=== PATIENT | female | born 1945 | race Caucasian/White ===

== ENCOUNTER 2017-07-18 21:47 | Inpatient (IN) | payer MEDICARE, OTHER ==
[2017-07-18 22:42] VITALS: BP 125/66
[2017-07-18 23:28] LABS: % BASOPHILS 0.3 % (0.0-2.0); % EOSINOPHILS 3.3 % (0.0-5.0); % LYMPHOCYTES 27.8 % (20.0-50.0); % MONOCYTES 4.8 % (2.0-10.0); % NEUTROPHILS 63.8 % (40.0-80.0); EOSINOPHILE ABSOLUTE 0.2 Th/cmm (0.1-0.4); HEMATOCRIT 39.6 % (41.0-60); HEMOGLOBIN 13.2 gm/dL (12-16); MEAN CELL VOLUME 90.3 fl (81-100); MEAN CORPUSCULAR HEMOGLOBIN 30.1 pg (27.0-31.0); MEAN CORPUSCULAR HGB CONC 33.3 pg (28.0-36.0); MEAN PLATELET VOLUME 7.4 fl; MONOCYTE ABSOLUTE 0.4 Th/cmm (0.3-1.0); NEUTROPHILE ABSOLUTE 4.7 Th/cmm (1.8-8.0); PLATELET COUNT 232 Th/cmm (150-400); RED BLOOD COUNT 4.38 Mil/cmm (3.80-5.20); RED CELL DISTRIBUTION WIDTH 12.5 % (11.5-20.0); WHITE BLOOD COUNT 7.3 Th/cmm (4.8-10.8)
[2017-07-19] MEDS: D5-0.45NS 1,000 ML IV SCH ×2 (00:01→19:03)
[2017-07-19 00:23] LABS: ALB/GLOB RATIO 1.2 (1.0-1.8); ALBUMIN 3.6 gm/dL (3.7-5.3); ALKALINE PHOSPHATASE 85 U/L (34-104); ANION GAP 9.3 (7.0-16.0); BILIRUBIN,TOTAL 0.4 mg/dL (0.3-1.0); BUN - UREA NITROGEN 18 mg/dL (7-25); CALCIUM SERUM 9.4 mg/dL (8.6-10.3); CARBON DIOXIDE 24.6 mEq/L (21.0-31.0); CHLORIDE 107 mEq/L (98-107); CREATININE - SERUM 0.6 mg/dL (0.6-1.2); GFR AFRICAN-AMERICAN > 60.0 ml/min (>90); GFR NON AFRICAN-AMERICAN > 60.0 ml/min; GLUCOSE 95 mg/dL (70-105); POTASSIUM SERUM 3.9 mEq/L (3.5-5.1); SGOT 18 U/L (13-39); SGPT/ALT 29 U/L (7-52); SODIUM SERUM 137 mEq/L (136-145); TOTAL PROTEIN,SERUM 6.5 gm/dL (6.0-8.3)
[2017-07-19 03:15] LABS: INF A SCREEN NEG FOR INF A; INF B SCREEN NEG FOR INF B
--- NOTE | 2017-07-19 08:42 | Diagnostic Imaging Report ---
Portable chest x-ray HISTORY: Cough The overall heart size is difficult to assess with portable technique and a poor inspiration, but appears generous. No focal pulmonary processes. No hilar or mediastinal abnormalities. IMPRESSION: 1. No acute focal pulmonary processes 2. Suggestion of cardiomegaly
[2017-07-19 14:58] LABS: % EOSINOPHILS 2.8 % (0.0-5.0); % LYMPHOCYTES 27.7 % (20.0-50.0); % MONOCYTES 4.9 % (2.0-10.0); % NEUTROPHILS 63.6 % (40.0-80.0); BASOPHILE ABSOLUTE 0.1 Th/cumm (0-0.2); EOSINOPHILE ABSOLUTE 0.2 Th/cmm (0.1-0.4); HEMATOCRIT 41.8 % (41.0-60); HEMOGLOBIN 13.9 gm/dL (12-16); LYMPHOCYTE ABSOLUTE 1.7 Th/cmm (1.5-3.0); MEAN CELL VOLUME 90.5 fl (81-100); MEAN CORPUSCULAR HEMOGLOBIN 30.1 pg (27.0-31.0); MEAN CORPUSCULAR HGB CONC 33.2 pg (28.0-36.0); MEAN PLATELET VOLUME 8.7 fl; MONOCYTE ABSOLUTE 0.3 Th/cmm (0.3-1.0); PLATELET COUNT 219 Th/cmm (150-400); RED BLOOD COUNT 4.62 Mil/cmm (3.80-5.20); WHITE BLOOD COUNT 6.3 Th/cmm (4.8-10.8)
--- NOTE | 2017-07-19 15:01 | History & Physical ---
ADMIT DATE: 07/19/2017 HISTORY OF PRESENT ILLNESS: Apparently, this patient was transferred from one of the nursing homes, initially went to [facility] and was seen in the Emergency Room and the patient was complaining of severe weakness. According to the nurses, she was not eating and they had done an EKG. EKG showed left bundle-branch block with left axis deviation and the initial cardiac workup was negative; however, the chest x-ray shows cardiomegaly. Also she has some labs done. LABORATORY DATA: Showed white count was 5.8, hemoglobin 12.4, hematocrit was 37 and the BUN was 20. Initial troponin ____ BNP was high, 358, indicating possible congestive heart failure and patient's chest x-ray showed tortuosity of the thoracic aorta. No pleural abnormalities. REVIEW OF SYSTEMS: The patient is difficult to talk to. She is an elderly female, not in acute distress, complaining of cough and fever. The system review is otherwise negative. PHYSICAL EXAMINATION: HEAD: Normal. ENT: Normal. NECK: Supple, nontender. LUNGS: Clear. CARDIOVASCULAR SYSTEM: S1, S2 heard. ABDOMEN: Soft. Bowel sounds are heard. CENTRAL NERVOUS SYSTEM: Decreased sensorium. DIAGNOSES: Possible congestive heart failure, cardiomegaly, left bundle branch block, possible CHF, increased BNP. History of not able to eat, possible GI disorder and history of dementia, history of cerebrovascular accident. PLAN: The patient will be admitted and will have a workup done including a Cardiology consult and neuro consult and I will follow the patient. JOB# [id number]
[2017-07-19 16:01] LABS: ANION GAP 14.9 (7.0-16.0); BUN - UREA NITROGEN 16 mg/dL (7-25); CALCIUM SERUM 9.5 mg/dL (8.6-10.3); CARBON DIOXIDE 22.3 mEq/L (21.0-31.0); CHLORIDE 108 mEq/L (98-107); CREATININE - SERUM 0.7 mg/dL (0.6-1.2); GFR AFRICAN-AMERICAN > 60.0 ml/min (>90); GFR NON AFRICAN-AMERICAN > 60.0 ml/min; GLUCOSE 91 mg/dL (70-105); POTASSIUM SERUM 4.2 mEq/L (3.5-5.1); SODIUM SERUM 141 mEq/L (136-145)
[2017-07-19 18:15] LABS: URINE MICROSCOPIC INDICATED? YES; URINE SOURCE CATH
[2017-07-19 18:20] LABS: URINE BILIRUBIN NEGATIVE (NEGATIVE); URINE BLOOD TRACE (NEGATIVE); URINE GLUCOSE (UA) NEGATIVE (NEGATIVE); URINE KETONE NEGATIVE (NEGATIVE); URINE LEUKOCYTE ESTERASE MODERATE (NEGATIVE); URINE NITRATE NEGATIVE (NEGATIVE); URINE PH 7.5 (4.6 - 8.0); URINE PROTEIN NEGATIVE (NEGATIVE); URINE UROBILINOGEN 0.2 E.U./dL (0.2 - 1.0)
[2017-07-19 18:31] LABS: URINE CLARITY CLOUDY (CLEAR); URINE COLOR YELLOW
[2017-07-19 18:35] LABS: URINE BACTERIA FEW /hpf (NONE SEEN); URINE EPITHELIAL CELLS MANY /lpf (FEW)
--- NOTE | 2017-07-20 01:06 | Consultation ---
DATE OF CONSULTATION: 07/19/2017 SURGICAL CONSULTATION REFERRING PHYSICIAN: Dr. Ram. REASON FOR CONSULTATION: Fever and cough. HISTORY OF PRESENT ILLNESS: The patient is a 71-year-old female with a past medical history of CHF, cardiomyopathy, dementia, presented to [facility] for generalized weakness. The patient also complained of fever and cough. On initial evaluation, chest x-ray showed cardiomegaly. For insurance purpose, the patient was transferred to [facility]. Further workup revealed a UTI. The patient was taking no antibiotic. ID consult was called for the UTI, cough and fever. So far, the patient remains afebrile. PAST MEDICAL HISTORY: CHF, cardiomyopathy, and hypothyroidism. ALLERGIES: MEPERIDINE. MEDICATIONS: See medication reconciliation sheet. SOCIAL HISTORY: The patient lives in a fpc. No history of smoking, alcohol or drug use. REVIEW OF SYSTEMS: GASTROINTESTINAL: The patient denies any nausea, vomiting, diarrhea or constipation. GENITOURINARY: No dysuria. NEUROLOGIC: No headache, no dizziness. Nonfocal. PHYSICAL EXAMINATION: VITAL SIGNS: Shows temperature is 97, pulse 82, respirations 19, blood pressure 121/73, oxygen saturation 97%. GENERAL: The patient is comfortable lying in bed, not in acute distress. HEENT: Head is normocephalic, atraumatic. Oral cavity moist pink tongue. Eyes: No pallor, no icterus. Pupils PERRLA, EOMI. NECK: Supple, no JVD, no bruit. Trachea in midline. CHEST: Bilateral vesicular sounds. No crackles or wheezing. HEART: S1, S2 within normal limits. Regular rhythm. No murmur, no gallop. ABDOMEN: Soft, nontender, nondistended. Bowel sounds present. EXTREMITIES: No signs of clubbing, no edema. NEUROLOGICAL: Alert, awake, oriented x 3. LABORATORY DATA: Current lab shows WBC count is 6300, hemoglobin 13.9, hematocrit 41.8, platelets are 290,000, and neutrophil is 63.6%. Sodium 141, potassium 4.2, chloride 108, bicarbonate is 22, BUN is 16, creatinine 0.7, and glucose is 91. Urinalysis showed moderate leukoesterase and WBC 10-25 and many epithelial cells and few bacteria. Influenza A and B screen is negative. IMPRESSION: 1. Bronchitis. 2. Fever, resolved. 3. Urinary tract infection. 4. Hyperlipidemia. RECOMMENDATIONS: Continue Levaquin 250 mg p.o. daily. [facility]# [id number] [facility]
--- NOTE | 2017-07-20 04:28 | Consultation ---
DATE OF CONSULTATION: 07/19/2017 HISTORY OF PRESENT ILLNESS: This 71-year-old female was seen and examined at the courtesy of Dr. Ram. The patient was admitted here. The patient is confused, does not give any history. On reviewing some information was obtained from the chart. The patient does have history of congestive heart failure and has cardiomegaly on chest x-ray. The patient is confused at times. The patient has history of seizures and hypothyroidism, possibility hypertension also. A complete left bundle branch block on EKG. There is no other information or other history available at the moment. LABORATORY DATA: Urinalysis did not show any rbc's, wbc's were 10-25. WBC count was 6.3, hemoglobin 13.9, hematocrit 41.8, platelet count was 219. Sodium 141, potassium 4.2, chloride 108, CO2 of 22.3, glucose 91, BUN 16, creatinine 0.7. GFR more than 60%, calcium 9.5, troponin was 0.02. EKG reveals sinus rhythm with complete left bundle branch block. Chest x-ray has shown cardiomegaly. PAST MEDICAL HISTORY, FAMILY HISTORY, SOCIAL HISTORY AND REVIEW OF SYSTEMS: Not much available from the patient. PHYSICAL EXAMINATION: VITAL SIGNS: Heart rate was 78, blood pressure was 124/71. SKIN: Normal. HEAD: Normocephalic. EYES: Conjunctivae were pink. There is no icterus in the eyes. Pupils equally reactive to light. NECK: There were no increased jugular venous distention, no thyromegaly, no lymphadenopathy. Carotids equal on both sides. CHEST: Bilaterally symmetrical, moved well with respiration. Respiratory movements equal both sides. Trachea is central. There is note to percussion. Breath sound, few scattered rales. CARDIOVASCULAR SYSTEM: PMI not well localized and no positional thrill. No parasternal heave. S1 normal, S2 physiologic. There were no S3, no rub. ABDOMEN: Soft, no tenderness, no rigidity, no guarding and no organomegaly. Bowel sounds normal. EXTREMITIES: No edema, no calf tenderness. Peripheral pulses diminished. IMPRESSION: History of hypertension, history of congestive heart failure, cardiomegaly, complete left bundle branch block on EKG, history of seizures, hypothyroidism, confusion. PLAN: She is to continue present management. The patient is already on beta constanza with Coreg. Also continue aspirin, Synthroid. We will get echocardiogram in a.m. to evaluate left ventricular function and valvular structure. We will also get BNP and lipid profile. The patient should be started on ARBs and statins. JOB# [id number]
[2017-07-20 05:30] LABS: CHOLESTEROL 170 mg/dL (<200); HDL -HIGH DENSITY LIPOPROTEIN 40 mg/dL (23-92); TRIGLYCERIDES 69 mg/dL (<150)
[2017-07-20] MEDS ORDERED: VORTIOXETINE HYDROBROMIDE 10 MG PO SCH (09:00)
[2017-07-20] MEDS ORDERED: Levothyroxine 0.125 Mg Tab PO SCH (09:00)
[2017-07-20] MEDS: Dextromethorphan/Quinidine 20mg/10mg Cap PO SCH (09:36)
[2017-07-20] MEDS: Atorvastatin Calcium 10 MG TAB PO SCH (09:36)
[2017-07-20] MEDS: Levothyroxine 0.1 Mg Tab PO SCH (09:37)
--- NOTE | 2017-07-20 16:18 | General Progress Note ---
Subjective - Review of Systems Events since last encounter: confused in no distress Objective - Results Result Diagrams: 07/19/17 07:07 07/19/17 07:07 Recent Labs: Laboratory Last Values WBC 6.3 Th/cmm (4.8-10.8) 07/19/17 07:07 RBC 4.62 Mil/cmm (3.80-5.20) 07/19/17 07:07 Hgb 13.9 gm/dL (12-16) 07/19/17 07:07 Hct 41.8 % (41.0-60) 07/19/17 07:07 MCV 90.5 fl (81-100) 07/19/17 07:07 MCH 30.1 pg (27.0-31.0) 07/19/17 07:07 MCHC Differential 33.2 pg (28.0-36.0) 07/19/17 07:07 RDW 13.0 % (11.5-20.0) 07/19/17 07:07 Plt Count 219 Th/cmm (150-400) 07/19/17 07:07 MPV 8.7 fl 07/19/17 07:07 Neutrophils % 63.6 % (40.0-80.0) 07/19/17 07:07 Lymphocytes % 27.7 % (20.0-50.0) 07/19/17 07:07 Monocytes % 4.9 % (2.0-10.0) 07/19/17 07:07 Eosinophils % 2.8 % (0.0-5.0) 07/19/17 07:07 Basophils % 1.0 % (0.0-2.0) 07/19/17 07:07 Sodium 141 mEq/L (136-145) 07/19/17 07:07 Potassium 4.2 mEq/L (3.5-5.1) 07/19/17 07:07 Chloride 108 mEq/L (98-107) H 07/19/17 07:07 Carbon Dioxide 22.3 mEq/L (21.0-31.0) 07/19/17 07:07 Anion Gap 14.9 (7.0-16.0) 07/19/17 07:07 BUN 16 mg/dL (7-25) 07/19/17 07:07 Creatinine 0.7 mg/dL (0.6-1.2) 07/19/17 07:07 Est GFR ( Amer) > 60.0 ml/min (>90) 07/19/17 07:07 Est GFR (Non-Af Amer) > 60.0 ml/min 07/19/17 07:07 BUN/Creatinine Ratio 22.9 07/19/17 07:07 Glucose 91 mg/dL (70-105) 07/19/17 07:07 Calcium 9.5 mg/dL (8.6-10.3) 07/19/17 07:07 Total Bilirubin 0.4 mg/dL (0.3-1.0) 07/18/17 23:20 AST 18 U/L (13-39) 07/18/17 23:20 ALT 29 U/L (7-52) 07/18/17 23:20 Alkaline Phosphatase 85 U/L (34-104) 07/18/17 23:20 Troponin I 0.02 ng/mL (0.01-0.05) 07/19/17 07:07 B-Natriuretic Peptide 629.0 pg/mL (5.0-100.0) H 07/20/17 04:57 Total Protein 6.5 gm/dL (6.0-8.3) 07/18/17 23:20 Albumin 3.6 gm/dL (3.7-5.3) L 07/18/17 23:20 Globulin 2.9 gm/dL 07/18/17 23:20 Albumin/Globulin Ratio 1.2 (1.0-1.8) 07/18/17 23:20 Triglycerides 69 mg/dL (<150) 07/20/17 04:57 Cholesterol 170 mg/dL (<200) 07/20/17 04:57 LDL Cholesterol Direct 123 mg/dL (75-193) 07/20/17 04:57 HDL Cholesterol 40 mg/dL (23-92) 07/20/17 04:57 Urine Source CATH 07/19/17 16:35 Urine Color YELLOW 07/19/17 16:35 Urine Clarity CLOUDY (CLEAR) H 07/19/17 16:35 Urine pH 7.5 (4.6 - 8.0) 07/19/17 16:35 Ur Specific [place] 1.010 (1.005-1.030) 07/19/17 16:35 Urine Protein NEGATIVE mg/dL (NEGATIVE) 07/19/17 16:35 Urine Glucose (UA) NEGATIVE mg/dL (NEGATIVE) 07/19/17 16:35 Urine Ketones NEGATIVE mg/dL (NEGATIVE) 07/19/17 16:35 Urine Blood TRACE (NEGATIVE) 07/19/17 16:35 Urine Nitrate NEGATIVE (NEGATIVE) 07/19/17 16:35 Urine Bilirubin NEGATIVE (NEGATIVE) 07/19/17 16:35 Urine Urobilinogen 0.2 E.U./dL (0.2 - 1.0) 07/19/17 16:35 Ur Leukocyte Esterase MODERATE (NEGATIVE) H 07/19/17 16:35 Urine RBC 2-5 /hpf (0-5) 07/19/17 16:35 Urine WBC 10-25 /hpf (0-5) H 07/19/17 16:35 Ur Epithelial Cells MANY /lpf (FEW) 07/19/17 16:35 Urine Bacteria FEW /hpf (NONE SEEN) 07/19/17 16:35 Influenza A (Rapid) NEG FOR INF A 07/19/17 02:15 Influenza B (Rapid) NEG FOR INF B 07/19/17 02:15 - Physical Exam Vitals and I&O: Vital Signs Temp 97.7 F 07/20/17 15:44 Pulse 68 07/20/17 15:44 Resp 19 07/20/17 15:44 BP 106/58 07/20/17 15:44 Pulse Ox 96 07/20/17 15:44 Intake & Output 07/19/17 07/20/17 07/20/17 18:59 06:59 18:59 Intake Total 1295.833 355.833 Balance 1295.833 355.833 Weight (lbs) 74.389 kg 66.224 kg Intake: Intake, IV Amount 895.833 55.833 D5-0.45NS 1,000 ml @ 50 895.833 55.833 mls/hr IV .Q20H [facility] Rx#: [id number] Oral 400 300 Other: # Voids 3 # Bowel Movements 1 1 Active Medications: Current Medications Aspirin (Ecotrin) 81 mg PO DAILY JOE Stop: 09/18/17 08:59 Last Admin: 07/20/17 09:36 Dose: 81 mg Atorvastatin Calcium (Lipitor) 10 mg PO DAILY [facility] PRN Reason: Protocol Stop: 09/18/17 08:59 Last Admin: 07/20/17 09:36 Dose: 10 mg Carvedilol (Coreg) 3.125 mg PO DAILY JOE Stop: 09/18/17 08:59 Last Admin: 07/20/17 09:36 Dose: 3.125 mg Dextromethorphan/Quinidine (Nuedexta 20mg-10mg) 1 cap PO DAILY JOE Stop: 09/18/17 08:59 Last Admin: 07/20/17 09:36 Dose: 1 cap Docusate Sodium (Colace) 250 mg PO DAILY JOE Stop: 09/18/17 08:59 Last Admin: 07/20/17 09:36 Dose: 250 mg Famotidine (Pepcid) 20 mg PO DAILY JOE Stop: 09/18/17 08:59 Last Admin: 07/20/17 09:36 Dose: 20 mg Furosemide (Lasix) 40 mg IVP DAILY JOE Stop: 09/19/17 08:59 Levetiracetam (Keppra) 500 mg PO BID JOE Stop: 09/17/17 16:59 Last Admin: 07/20/17 09:36 Dose: 500 mg Levofloxacin (Levaquin) 250 mg PO DAILY JOE Stop: 09/18/17 08:59 Last Admin: 07/20/17 09:37 Dose: 250 mg Levothyroxine Sodium (Synthroid) 0.1 mg PO DAILY JOE Stop: 09/18/17 08:59 Last Admin: 07/20/17 09:37 Dose: 0.1 mg Lisinopril (Zestril) 5 mg PO DAILY JOE Stop: 09/18/17 08:59 Last Admin: 07/20/17 09:37 Dose: 5 mg Lorazepam (Ativan) 0.5 mg PO Q6HR PRN; Protocol PRN Reason: Anxiety Stop: 09/18/17 12:19 Miscellaneous (Vortioxetine Hydrobromide [Trintellix]) 10 mg PO DAILY [facility] Stop: 09/18/17 08:59
--- NOTE | 2017-07-21 04:30 | Consultation ---
DATE OF CONSULTATION: 07/20/2017 PSYCHIATRIC CONSULTATION The patient was seen, chart reviewed. Discussed with staff. HISTORY OF PRESENT ILLNESS: The patient is a 71-year-old female with a history of multiple medical problems, initially was at [facility] for her generalized weakness, not eating. The patient was found to have some underlying medical issues. The patient has been confused, restless, not able to talk. The patient not able to give much information, was seen in presence of staff. The patient appears to be somewhat restless and not able to communicate much. PAST PSYCHIATRIC HISTORY: The patient's condition was medically cleared at [facility], supposed to come to Geropsych Unit, but now she is on medical floor again and was seen by Cardiology. PSYCHOSOCIAL HISTORY: The patient ____, requires complete care. PAST MEDICAL HISTORY: Hypertension, CHF, history of seizure, hypothyroidism, confusion, possible dementia. MENTAL STATUS EXAMINATION: The patient is internally preoccupied, made fair eye contact, appears to be oriented to person, not oriented to time or place. Thought process is disorganized. The patient's affect appears to be depressed and she has sad facial expression. Insight is poor. ASSESSMENT: Psychosis, not otherwise specified; dementia, Alzheimer's type; major depressive disorder with psychosis. PLAN: At this time, would recommend continuation of medical and supportive measures. The patient has bronchitis and UTI and underlying cardiac problems. We will provide supportive measures. Use a small dose of Ativan 0.5 mg q.6 hours p.r.n. anxiety. We will follow closely. Thank you for the consultation. [facility]# [id number]
[2017-07-21 06:20] LABS: ANION GAP 10.4 (7.0-16.0); BUN - UREA NITROGEN 21 mg/dL (7-25); CALCIUM SERUM 9.3 mg/dL (8.6-10.3); CARBON DIOXIDE 24.5 mEq/L (21.0-31.0); CHLORIDE 109 mEq/L (98-107); CREATININE - SERUM 0.6 mg/dL (0.6-1.2); GFR AFRICAN-AMERICAN > 60.0 ml/min (>90); GFR NON AFRICAN-AMERICAN > 60.0 ml/min; GLUCOSE 87 mg/dL (70-105); POTASSIUM SERUM 3.9 mEq/L (3.5-5.1); SODIUM SERUM 140 mEq/L (136-145)
[2017-07-21] MEDS: Dextromethorphan/Quinidine 20mg/10mg Cap PO SCH (08:44)
[2017-07-21] MEDS: Atorvastatin Calcium 10 MG TAB PO SCH (08:44)
[2017-07-21] MEDS: Levothyroxine 0.1 Mg Tab PO SCH (08:45)
--- NOTE | 2017-07-21 11:46 | Internal Medicine Prog Note ---
Internal Medicine Subjective - Subjective Service Date: 07/21/17 Patient seen and examined:: with staff Patient is:: awake Per staff patient has:: tolerating meds Internal Medicine Objective - Results Result Diagrams: 07/19/17 07:07 07/21/17 05:55 Recent Labs: Laboratory Last Values WBC 6.3 Th/cmm (4.8-10.8) 07/19/17 07:07 RBC 4.62 Mil/cmm (3.80-5.20) 07/19/17 07:07 Hgb 13.9 gm/dL (12-16) 07/19/17 07:07 Hct 41.8 % (41.0-60) 07/19/17 07:07 MCV 90.5 fl (81-100) 07/19/17 07:07 MCH 30.1 pg (27.0-31.0) 07/19/17 07:07 MCHC Differential 33.2 pg (28.0-36.0) 07/19/17 07:07 RDW 13.0 % (11.5-20.0) 07/19/17 07:07 Plt Count 219 Th/cmm (150-400) 07/19/17 07:07 MPV 8.7 fl 07/19/17 07:07 Neutrophils % 63.6 % (40.0-80.0) 07/19/17 07:07 Lymphocytes % 27.7 % (20.0-50.0) 07/19/17 07:07 Monocytes % 4.9 % (2.0-10.0) 07/19/17 07:07 Eosinophils % 2.8 % (0.0-5.0) 07/19/17 07:07 Basophils % 1.0 % (0.0-2.0) 07/19/17 07:07 Sodium 140 mEq/L (136-145) 07/21/17 05:55 Potassium 3.9 mEq/L (3.5-5.1) 07/21/17 05:55 Chloride 109 mEq/L (98-107) H 07/21/17 05:55 Carbon Dioxide 24.5 mEq/L (21.0-31.0) 07/21/17 05:55 Anion Gap 10.4 (7.0-16.0) 07/21/17 05:55 BUN 21 mg/dL (7-25) 07/21/17 05:55 Creatinine 0.6 mg/dL (0.6-1.2) 07/21/17 05:55 Est GFR ( Amer) > 60.0 ml/min (>90) 07/21/17 05:55 Est GFR (Non-Af Amer) > 60.0 ml/min 07/21/17 05:55 BUN/Creatinine Ratio 35.0 07/21/17 05:55 Glucose 87 mg/dL (70-105) 07/21/17 05:55 Calcium 9.3 mg/dL (8.6-10.3) 07/21/17 05:55 Total Bilirubin 0.4 mg/dL (0.3-1.0) 07/18/17 23:20 AST 18 U/L (13-39) 07/18/17 23:20 ALT 29 U/L (7-52) 07/18/17 23:20 Alkaline Phosphatase 85 U/L (34-104) 07/18/17 23:20 Troponin I 0.02 ng/mL (0.01-0.05) 07/19/17 07:07 B-Natriuretic Peptide 253.0 pg/mL (5.0-100.0) H 07/21/17 05:55 Total Protein 6.5 gm/dL (6.0-8.3) 07/18/17 23:20 Albumin 3.6 gm/dL (3.7-5.3) L 07/18/17 23:20 Globulin 2.9 gm/dL 07/18/17 23:20 Albumin/Globulin Ratio 1.2 (1.0-1.8) 07/18/17 23:20 Triglycerides 69 mg/dL (<150) 07/20/17 04:57 Cholesterol 170 mg/dL (<200) 07/20/17 04:57 LDL Cholesterol Direct 123 mg/dL (75-193) 07/20/17 04:57 HDL Cholesterol 40 mg/dL (23-92) 07/20/17 04:57 Urine Source CATH 07/19/17 16:35 Urine Color YELLOW 07/19/17 16:35 Urine Clarity CLOUDY (CLEAR) H 07/19/17 16:35 Urine pH 7.5 (4.6 - 8.0) 07/19/17 16:35 Ur Specific [place] 1.010 (1.005-1.030) 07/19/17 16:35 Urine Protein NEGATIVE mg/dL (NEGATIVE) 07/19/17 16:35 Urine Glucose (UA) NEGATIVE mg/dL (NEGATIVE) 07/19/17 16:35 Urine Ketones NEGATIVE mg/dL (NEGATIVE) 07/19/17 16:35 Urine Blood TRACE (NEGATIVE) 07/19/17 16:35 Urine Nitrate NEGATIVE (NEGATIVE) 07/19/17 16:35 Urine Bilirubin NEGATIVE (NEGATIVE) 07/19/17 16:35 Urine Urobilinogen 0.2 E.U./dL (0.2 - 1.0) 07/19/17 16:35 Ur Leukocyte Esterase MODERATE (NEGATIVE) H 07/19/17 16:35 Urine RBC 2-5 /hpf (0-5) 07/19/17 16:35 Urine WBC 10-25 /hpf (0-5) H 07/19/17 16:35 Ur Epithelial Cells MANY /lpf (FEW) 07/19/17 16:35 Urine Bacteria FEW /hpf (NONE SEEN) 07/19/17 16:35 Influenza A (Rapid) NEG FOR INF A 07/19/17 02:15 Influenza B (Rapid) NEG FOR INF B 07/19/17 02:15 - Physical Exam Vitals and I&O: Vital Signs Temp 98.6 F 07/21/17 08:00 Pulse 69 07/21/17 08:45 Resp 16 07/21/17 08:00 BP 110/58 07/21/17 08:52 Pulse Ox 97 07/21/17 08:00 Intake & Output 07/20/17 07/21/17 07/21/17 18:59 06:59 18:59 Intake Total 500 200 Balance 500 200 Weight (lbs) 146 lb 146 lb Intake: Oral 500 200 Other: # Voids 2 # Bowel Movements 3 0 Stool Characteristics Soft Formed Brown Active Medications: Current Medications Aspirin (Ecotrin) 81 mg PO DAILY [facility] Stop: 09/18/17 08:59 Last Admin: 07/21/17 08:44 Dose: 81 mg Atorvastatin Calcium (Lipitor) 10 mg PO DAILY [facility] PRN Reason: Protocol Stop: 09/18/17 08:59 Last Admin: 07/21/17 08:44 Dose: 10 mg Carvedilol (Coreg) 3.125 mg PO DAILY [facility] Stop: 09/18/17 08:59 Last Admin: 07/21/17 08:45 Dose: 3.125 mg Dextromethorphan/Quinidine (Nuedexta 20mg-10mg) 1 cap PO DAILY JOE Stop: 09/18/17 08:59 Last Admin: 07/21/17 08:44 Dose: 1 cap Docusate Sodium (Colace) 250 mg PO DAILY JOE Stop: 09/18/17 08:59 Last Admin: 07/21/17 08:45 Dose: 250 mg Famotidine (Pepcid) 20 mg PO DAILY JOE Stop: 09/18/17 08:59 Last Admin: 07/21/17 08:44 Dose: 20 mg Furosemide (Lasix) 40 mg IVP DAILY JOE Stop: 09/19/17 08:59 Last Admin: 07/21/17 08:52 Dose: 40 mg Levetiracetam (Keppra) 500 mg PO BID JOE Stop: 09/17/17 16:59 Last Admin: 07/21/17 08:45 Dose: 500 mg Levofloxacin (Levaquin) 250 mg PO DAILY JOE Stop: 09/18/17 08:59 Last Admin: 07/21/17 08:45 Dose: 250 mg Levothyroxine Sodium (Synthroid) 0.1 mg PO DAILY JOE Stop: 09/18/17 08:59 Last Admin: 07/21/17 08:45 Dose: 0.1 mg Lisinopril (Zestril) 5 mg PO DAILY JOE Stop: 09/18/17 08:59 Last Admin: 07/21/17 08:44 Dose: 5 mg Lorazepam (Ativan) 0.5 mg PO Q6HR PRN; Protocol PRN Reason: Anxiety Stop: 09/18/17 12:19 Miscellaneous (Vortioxetine Hydrobromide [Trintellix]) 10 mg PO DAILY [facility] Stop: 09/18/17 08:59 General: alert HEENT: NC/AT, PERRLA Neck: Supple Lungs: CTAB Cardiovascular: RRR, Normal S1, Normal S2, without murmur Abdomen: soft, non-tender Internal Medicine Assmt/Plan - Assessment Assessment: acute bronchitis acute febrile illness acute uti - Plan Plan: continue ivabx as per id supplemental oxygen and inhalation treatments f/u labs in am continue current plan of care
--- NOTE | 2017-07-21 13:07 | Infectious Disease Prog Note ---
Infectious Disease Subjective - Review of Systems Service Date: 07/21/17 Subjective: There is no new change, no fever. Infectious Disease Objective - Results Result Diagrams: 07/19/17 07:07 07/21/17 05:55 Recent Labs: Laboratory Last Values WBC 6.3 Th/cmm (4.8-10.8) 07/19/17 07:07 RBC 4.62 Mil/cmm (3.80-5.20) 07/19/17 07:07 Hgb 13.9 gm/dL (12-16) 07/19/17 07:07 Hct 41.8 % (41.0-60) 07/19/17 07:07 MCV 90.5 fl (81-100) 07/19/17 07:07 MCH 30.1 pg (27.0-31.0) 07/19/17 07:07 MCHC Differential 33.2 pg (28.0-36.0) 07/19/17 07:07 RDW 13.0 % (11.5-20.0) 07/19/17 07:07 Plt Count 219 Th/cmm (150-400) 07/19/17 07:07 MPV 8.7 fl 07/19/17 07:07 Neutrophils % 63.6 % (40.0-80.0) 07/19/17 07:07 Lymphocytes % 27.7 % (20.0-50.0) 07/19/17 07:07 Monocytes % 4.9 % (2.0-10.0) 07/19/17 07:07 Eosinophils % 2.8 % (0.0-5.0) 07/19/17 07:07 Basophils % 1.0 % (0.0-2.0) 07/19/17 07:07 Sodium 140 mEq/L (136-145) 07/21/17 05:55 Potassium 3.9 mEq/L (3.5-5.1) 07/21/17 05:55 Chloride 109 mEq/L (98-107) H 07/21/17 05:55 Carbon Dioxide 24.5 mEq/L (21.0-31.0) 07/21/17 05:55 Anion Gap 10.4 (7.0-16.0) 07/21/17 05:55 BUN 21 mg/dL (7-25) 07/21/17 05:55 Creatinine 0.6 mg/dL (0.6-1.2) 07/21/17 05:55 Est GFR ( Amer) > 60.0 ml/min (>90) 07/21/17 05:55 Est GFR (Non-Af Amer) > 60.0 ml/min 07/21/17 05:55 BUN/Creatinine Ratio 35.0 07/21/17 05:55 Glucose 87 mg/dL (70-105) 07/21/17 05:55 Calcium 9.3 mg/dL (8.6-10.3) 07/21/17 05:55 Total Bilirubin 0.4 mg/dL (0.3-1.0) 07/18/17 23:20 AST 18 U/L (13-39) 07/18/17 23:20 ALT 29 U/L (7-52) 07/18/17 23:20 Alkaline Phosphatase 85 U/L (34-104) 07/18/17 23:20 Troponin I 0.02 ng/mL (0.01-0.05) 07/19/17 07:07 B-Natriuretic Peptide 253.0 pg/mL (5.0-100.0) H 07/21/17 05:55 Total Protein 6.5 gm/dL (6.0-8.3) 07/18/17 23:20 Albumin 3.6 gm/dL (3.7-5.3) L 07/18/17 23:20 Globulin 2.9 gm/dL 07/18/17 23:20 Albumin/Globulin Ratio 1.2 (1.0-1.8) 07/18/17 23:20 Triglycerides 69 mg/dL (<150) 07/20/17 04:57 Cholesterol 170 mg/dL (<200) 07/20/17 04:57 LDL Cholesterol Direct 123 mg/dL (75-193) 07/20/17 04:57 HDL Cholesterol 40 mg/dL (23-92) 07/20/17 04:57 Urine Source CATH 07/19/17 16:35 Urine Color YELLOW 07/19/17 16:35 Urine Clarity CLOUDY (CLEAR) H 07/19/17 16:35 Urine pH 7.5 (4.6 - 8.0) 07/19/17 16:35 Ur Specific [place] 1.010 (1.005-1.030) 07/19/17 16:35 Urine Protein NEGATIVE mg/dL (NEGATIVE) 07/19/17 16:35 Urine Glucose (UA) NEGATIVE mg/dL (NEGATIVE) 07/19/17 16:35 Urine Ketones NEGATIVE mg/dL (NEGATIVE) 07/19/17 16:35 Urine Blood TRACE (NEGATIVE) 07/19/17 16:35 Urine Nitrate NEGATIVE (NEGATIVE) 07/19/17 16:35 Urine Bilirubin NEGATIVE (NEGATIVE) 07/19/17 16:35 Urine Urobilinogen 0.2 E.U./dL (0.2 - 1.0) 07/19/17 16:35 Ur Leukocyte Esterase MODERATE (NEGATIVE) H 07/19/17 16:35 Urine RBC 2-5 /hpf (0-5) 07/19/17 16:35 Urine WBC 10-25 /hpf (0-5) H 07/19/17 16:35 Ur Epithelial Cells MANY /lpf (FEW) 07/19/17 16:35 Urine Bacteria FEW /hpf (NONE SEEN) 07/19/17 16:35 Influenza A (Rapid) NEG FOR INF A 07/19/17 02:15 Influenza B (Rapid) NEG FOR INF B 07/19/17 02:15 - Physical Exam Vitals and I&O: Vital Signs Temp 96.6 F 07/21/17 11:49 Pulse 71 07/21/17 11:49 Resp 17 07/21/17 11:49 BP 96/56 07/21/17 11:49 Pulse Ox 97 07/21/17 11:49 Intake & Output 07/20/17 07/21/17 07/21/17 18:59 06:59 18:59 Intake Total 500 200 Balance 500 200 Weight (lbs) 66.224 kg 66.224 kg Intake: Oral 500 200 Other: # Voids 2 # Bowel Movements 3 0 Stool Characteristics Soft Formed Brown Active Medications: Current Medications Aspirin (Ecotrin) 81 mg PO DAILY [facility] Stop: 09/18/17 08:59 Last Admin: 07/21/17 08:44 Dose: 81 mg Atorvastatin Calcium (Lipitor) 10 mg PO DAILY [facility] PRN Reason: Protocol Stop: 09/18/17 08:59 Last Admin: 07/21/17 08:44 Dose: 10 mg Carvedilol (Coreg) 3.125 mg PO DAILY [facility] Stop: 09/18/17 08:59 Last Admin: 07/21/17 08:45 Dose: 3.125 mg Dextromethorphan/Quinidine (Nuedexta 20mg-10mg) 1 cap PO DAILY JOE Stop: 09/18/17 08:59 Last Admin: 07/21/17 08:44 Dose: 1 cap Docusate Sodium (Colace) 250 mg PO DAILY JOE Stop: 09/18/17 08:59 Last Admin: 07/21/17 08:45 Dose: 250 mg Famotidine (Pepcid) 20 mg PO DAILY JOE Stop: 09/18/17 08:59 Last Admin: 07/21/17 08:44 Dose: 20 mg Furosemide (Lasix) 40 mg IVP DAILY JOE Stop: 09/19/17 08:59 Last Admin: 07/21/17 08:52 Dose: 40 mg Levetiracetam (Keppra) 500 mg PO BID JOE Stop: 09/17/17 16:59 Last Admin: 07/21/17 08:45 Dose: 500 mg Levofloxacin (Levaquin) 250 mg PO DAILY JOE Stop: 09/18/17 08:59 Last Admin: 07/21/17 08:45 Dose: 250 mg Levothyroxine Sodium (Synthroid) 0.1 mg PO DAILY JOE Stop: 09/18/17 08:59 Last Admin: 07/21/17 08:45 Dose: 0.1 mg Lisinopril (Zestril) 5 mg PO DAILY JOE Stop: 09/18/17 08:59 Last Admin: 07/21/17 08:44 Dose: 5 mg Lorazepam (Ativan) 0.5 mg PO Q6HR PRN; Protocol PRN Reason: Anxiety Stop: 09/18/17 12:19 Miscellaneous (Vortioxetine Hydrobromide [Trintellix]) 10 mg PO DAILY [facility] Stop: 09/18/17 08:59 General: no acute distress, well developed, well nourished HEENT: atraumatic, normocephalic, PERRLA, EOMI, moist mucous membrane Neck: supple, no thyromegaly, no lymphadenopathy Cardiovascular: S1S2, regular Lungs: clear to auscultation bilaterally, clear to percussion Abdomen: soft, no tender, no distended Extremities: no cyanosis, no clubbing, no edema Neurological: awake, alert Infectious Disease Assmt/Plan - Assessment Assessment: UTI Bronchitis. - Plan Plan: Levaquin po for 5 more days.
--- NOTE | 2017-07-21 20:49 | Cardiology ---
07/20/[address] Ram. PROCEDURE: Echocardiogram. M-MODE ECHOCARDIOGRAM: Mitral valve, anterior leaflet of mitral valve shows decreased excursion, EF velocity. Posterior leaflet of the mitral valve shows decreased excursion. Left ventricular posterior wall shows normal thickness, decreased excursion. Interventricular septum showed normal thickness, decreased excursion, ejection fraction 23%. Left atrium normal. Aortic root shows normal dimension, normal excursion of aortic leaflets. CONCLUSION: Cardiomyopathy, ejection fraction 23%. 2D ECHO: Long axis view shows enlarged left ventricular cavity with decreased ejection fraction. Left atrium normal. Aortic root shows normal dimension, normal excursion of aortic leaflets. Short axis view of mitral valve normal. Short axis view of aortic valve normal. Apical four chamber view shows enlarged left ventricular cavity with decreased ejection fraction. Left atrium normal, right ventricular cavity, right atrium normal, no pericardial effusion. Cardiomyopathy, ejection fraction 23%. Doppler study showed mild mitral regurgitation, mild tricuspid regurgitation, right ventricular systolic pressure 31 mmHg. CONCLUSION: Cardiomyopathy, ejection fraction 23%, mild mitral regurgitation, mild tricuspid regurgitation. JOB# [id number]
[2017-07-22 05:39] LABS: % BASOPHILS 0.6 % (0.0-2.0); % EOSINOPHILS 3.6 % (0.0-5.0); % LYMPHOCYTES 31.5 % (20.0-50.0); % NEUTROPHILS 58.3 % (40.0-80.0); EOSINOPHILE ABSOLUTE 0.2 Th/cmm (0.1-0.4); HEMOGLOBIN 12.9 gm/dL (12-16); MEAN CELL VOLUME 89.2 fl (81-100); MEAN CORPUSCULAR HEMOGLOBIN 29.6 pg (27.0-31.0); MEAN CORPUSCULAR HGB CONC 33.1 pg (28.0-36.0); MEAN PLATELET VOLUME 7.9 fl; MONOCYTE ABSOLUTE 0.4 Th/cmm (0.3-1.0); NEUTROPHILE ABSOLUTE 3.8 Th/cmm (1.8-8.0); PLATELET COUNT 215 Th/cmm (150-400); RED BLOOD COUNT 4.38 Mil/cmm (3.80-5.20); RED CELL DISTRIBUTION WIDTH 13.2 % (11.5-20.0); WHITE BLOOD COUNT 6.4 Th/cmm (4.8-10.8)
[2017-07-22 06:05] LABS: ANION GAP 9.4 (7.0-16.0); BUN - UREA NITROGEN 29 mg/dL (7-25); CALCIUM SERUM 9.4 mg/dL (8.6-10.3); CARBON DIOXIDE 23.4 mEq/L (21.0-31.0); CHLORIDE 108 mEq/L (98-107); CREATININE - SERUM 0.6 mg/dL (0.6-1.2); GFR AFRICAN-AMERICAN > 60.0 ml/min (>90); GFR NON AFRICAN-AMERICAN > 60.0 ml/min; GLUCOSE 90 mg/dL (70-105); POTASSIUM SERUM 3.8 mEq/L (3.5-5.1); SODIUM SERUM 137 mEq/L (136-145)
[2017-07-22] MEDS: Dextromethorphan/Quinidine 20mg/10mg Cap PO SCH (09:51)
[2017-07-22] MEDS: Atorvastatin Calcium 10 MG TAB PO SCH (09:51)
[2017-07-22] MEDS: Levothyroxine 0.1 Mg Tab PO SCH (09:52)
--- NOTE | 2017-07-22 13:01 | Infectious Disease Prog Note ---
Infectious Disease Subjective - Review of Systems Service Date: 07/22/17 Subjective: There is no new change, no fever. Infectious Disease Objective - Results Result Diagrams: 07/22/17 05:20 07/22/17 05:20 Recent Labs: Laboratory Last Values WBC 6.4 Th/cmm (4.8-10.8) 07/22/17 05:20 RBC 4.38 Mil/cmm (3.80-5.20) 07/22/17 05:20 Hgb 12.9 gm/dL (12-16) 07/22/17 05:20 Hct 39.0 % (41.0-60) L 07/22/17 05:20 MCV 89.2 fl (81-100) 07/22/17 05:20 MCH 29.6 pg (27.0-31.0) 07/22/17 05:20 MCHC Differential 33.1 pg (28.0-36.0) 07/22/17 05:20 RDW 13.2 % (11.5-20.0) 07/22/17 05:20 Plt Count 215 Th/cmm (150-400) 07/22/17 05:20 MPV 7.9 fl 07/22/17 05:20 Neutrophils % 58.3 % (40.0-80.0) 07/22/17 05:20 Lymphocytes % 31.5 % (20.0-50.0) 07/22/17 05:20 Monocytes % 6.0 % (2.0-10.0) 07/22/17 05:20 Eosinophils % 3.6 % (0.0-5.0) 07/22/17 05:20 Basophils % 0.6 % (0.0-2.0) 07/22/17 05:20 Sodium 137 mEq/L (136-145) 07/22/17 05:20 Potassium 3.8 mEq/L (3.5-5.1) 07/22/17 05:20 Chloride 108 mEq/L (98-107) H 07/22/17 05:20 Carbon Dioxide 23.4 mEq/L (21.0-31.0) 07/22/17 05:20 Anion Gap 9.4 (7.0-16.0) 07/22/17 05:20 BUN 29 mg/dL (7-25) H 07/22/17 05:20 Creatinine 0.6 mg/dL (0.6-1.2) 07/22/17 05:20 Est GFR ( Amer) > 60.0 ml/min (>90) 07/22/17 05:20 Est GFR (Non-Af Amer) > 60.0 ml/min 07/22/17 05:20 BUN/Creatinine Ratio 48.3 07/22/17 05:20 Glucose 90 mg/dL (70-105) 07/22/17 05:20 Calcium 9.4 mg/dL (8.6-10.3) 07/22/17 05:20 Total Bilirubin 0.4 mg/dL (0.3-1.0) 07/18/17 23:20 AST 18 U/L (13-39) 07/18/17 23:20 ALT 29 U/L (7-52) 07/18/17 23:20 Alkaline Phosphatase 85 U/L (34-104) 07/18/17 23:20 Troponin I 0.02 ng/mL (0.01-0.05) 07/19/17 07:07 B-Natriuretic Peptide 253.0 pg/mL (5.0-100.0) H 07/21/17 05:55 Total Protein 6.5 gm/dL (6.0-8.3) 07/18/17 23:20 Albumin 3.6 gm/dL (3.7-5.3) L 07/18/17 23:20 Globulin 2.9 gm/dL 07/18/17 23:20 Albumin/Globulin Ratio 1.2 (1.0-1.8) 07/18/17 23:20 Triglycerides 69 mg/dL (<150) 07/20/17 04:57 Cholesterol 170 mg/dL (<200) 07/20/17 04:57 LDL Cholesterol Direct 123 mg/dL (75-193) 07/20/17 04:57 HDL Cholesterol 40 mg/dL (23-92) 07/20/17 04:57 Urine Source CATH 07/19/17 16:35 Urine Color YELLOW 07/19/17 16:35 Urine Clarity CLOUDY (CLEAR) H 07/19/17 16:35 Urine pH 7.5 (4.6 - 8.0) 07/19/17 16:35 Ur Specific [place] 1.010 (1.005-1.030) 07/19/17 16:35 Urine Protein NEGATIVE mg/dL (NEGATIVE) 07/19/17 16:35 Urine Glucose (UA) NEGATIVE mg/dL (NEGATIVE) 07/19/17 16:35 Urine Ketones NEGATIVE mg/dL (NEGATIVE) 07/19/17 16:35 Urine Blood TRACE (NEGATIVE) 07/19/17 16:35 Urine Nitrate NEGATIVE (NEGATIVE) 07/19/17 16:35 Urine Bilirubin NEGATIVE (NEGATIVE) 07/19/17 16:35 Urine Urobilinogen 0.2 E.U./dL (0.2 - 1.0) 07/19/17 16:35 Ur Leukocyte Esterase MODERATE (NEGATIVE) H 07/19/17 16:35 Urine RBC 2-5 /hpf (0-5) 07/19/17 16:35 Urine WBC 10-25 /hpf (0-5) H 07/19/17 16:35 Ur Epithelial Cells MANY /lpf (FEW) 07/19/17 16:35 Urine Bacteria FEW /hpf (NONE SEEN) 07/19/17 16:35 Influenza A (Rapid) NEG FOR INF A 07/19/17 02:15 Influenza B (Rapid) NEG FOR INF B 07/19/17 02:15 - Physical Exam Vitals and I&O: Vital Signs Temp 98.2 F 07/22/17 11:21 Pulse 69 07/22/17 11:21 Resp 18 07/22/17 11:21 BP 97/58 07/22/17 11:21 Pulse Ox 99 07/22/17 11:21 Intake & Output 07/21/17 07/22/17 07/22/17 18:59 06:59 18:59 Intake Total 650 Balance 650 Weight (lbs) 66.224 kg 66.224 kg Intake: Oral 650 Other: # Voids 3 2 # Bowel Movements 3 1 Stool Characteristics Soft Soft Formed Formed Brown Brown Active Medications: Current Medications Aspirin (Ecotrin) 81 mg PO DAILY [facility] Stop: 09/18/17 08:59 Last Admin: 07/22/17 09:53 Dose: 81 mg Atorvastatin Calcium (Lipitor) 10 mg PO DAILY [facility] PRN Reason: Protocol Stop: 09/18/17 08:59 Last Admin: 07/22/17 09:51 Dose: 10 mg Carvedilol (Coreg) 3.125 mg PO DAILY [facility] Stop: 09/18/17 08:59 Last Admin: 07/22/17 09:52 Dose: Not Given Dextromethorphan/Quinidine (Nuedexta 20mg-10mg) 1 cap PO DAILY JOE Stop: 09/18/17 08:59 Last Admin: 07/22/17 09:51 Dose: 1 cap Docusate Sodium (Colace) 250 mg PO DAILY [facility] Stop: 09/18/17 08:59 Last Admin: 07/22/17 09:53 Dose: 250 mg Famotidine (Pepcid) 20 mg PO DAILY [facility] Stop: 09/18/17 08:59 Last Admin: 07/22/17 09:52 Dose: 20 mg Furosemide (Lasix) 40 mg IVP DAILY JOE Stop: 09/19/17 08:59 Last Admin: 07/22/17 09:53 Dose: 40 mg Levetiracetam (Keppra) 500 mg PO BID JOE Stop: 09/17/17 16:59 Last Admin: 07/22/17 09:56 Dose: 500 mg Levofloxacin (Levaquin) 250 mg PO DAILY JOE Stop: 09/18/17 08:59 Last Admin: 07/22/17 09:52 Dose: 250 mg Levothyroxine Sodium (Synthroid) 0.1 mg PO DAILY JOE Stop: 09/18/17 08:59 Last Admin: 07/22/17 09:52 Dose: 0.1 mg Lisinopril (Zestril) 5 mg PO DAILY JOE Stop: 09/18/17 08:59 Last Admin: 07/22/17 09:52 Dose: Not Given Lorazepam (Ativan) 0.5 mg PO Q6HR PRN; Protocol PRN Reason: Anxiety Stop: 09/18/17 12:19 Miscellaneous (Vortioxetine Hydrobromide [Trintellix]) 10 mg PO DAILY [facility] Stop: 09/18/17 08:59 General: no acute distress, well developed, well nourished HEENT: atraumatic, normocephalic, PERRLA, EOMI, moist mucous membrane Neck: supple, no thyromegaly Cardiovascular: S1S2, regular Lungs: clear to auscultation bilaterally, clear to percussion Abdomen: soft, no tender, no distended, no rebound Extremities: no cyanosis, no clubbing, no edema Neurological: awake, alert, oriented Skin: intact Infectious Disease Assmt/Plan - Assessment Assessment: UTI Bronchitis. - Plan Plan: Levaquin po for 4 more days.
--- NOTE | 2017-07-22 15:58 | Consultation ---
DATE OF CONSULTATION: 07/21/2017 HISTORY OF PRESENT ILLNESS: A 71-year-old male referred for the facial weakness. The patient comes with complaint of generalized weakness. The patient is in a facility. The patient has history of previous stroke with right hemiplegia, dysarthria, and aphasia. PAST MEDICAL HISTORY: The patient's other history includes; 1. History of congestive heart failure. 2. Cardiomyopathy. 3. Dementia. 4. Hypothyroidism. ALLERGIES: MEPERIDINE. MEDICATIONS: As per reconciliation. Here, the patient is on aspirin 81, Lipitor 10 mg, Coreg, Nuedexta 20 mg/10 mg 1 daily, Lasix, Keppra 500 b.i.d., Levaquin, Synthroid, lisinopril 5 mg, lorazepam on p.r.n. basis. SOCIAL HISTORY: Does not smoke or drink. REVIEW OF SYSTEMS: The patient has marked dysarthria and aphasia. Difficulty with communication, but will follow simple instructions. The patient is able to swallow. Mainly in the bed. No chest pain. The patient had cough, bit better now. No seizures noted. PHYSICAL EXAMINATION: VITAL SIGNS: Temperature 98.2, blood pressure 125/74, pulse is around about 80. NECK: Supple, no bruits. HEART: Sounds S1, S2. LUNGS: Clear. NEUROLOGIC: The patient is awake. The patient is markedly dysarthric along with some aphasia. Difficulty making giving her name ____. She seems to nod appropriately to the objects being named. Pupils react to light. Difficult to know if any field defect. MOTOR: She has increased tone on the right arm with spasticity, but able to lift it, she is 3+ to -4. Unable to use the right hand. Right leg also some movement, lifts it up, but weaker. Left side seems to be okay. INVESTIGATIONS: WBC 6.3, hemoglobin 13.9, platelets okay. Sodium 141, potassium 4.2. WBC urine, 10-25. IMPRESSION: 1. Encephalopathy, improved. 2. Weakness. 3. Urinary tract infection. 4. The patient with previous stroke with right hemiplegia, dysarthria or aphasia. 5. History of seizures. 6. Psychosis. 7. History of bronchitis. 8. Hypertension. 9. Hypothyroidism. PLAN: Continue present treatment. JOB# [id number]
--- NOTE | 2017-08-02 04:42 | Discharge Summary ---
DATE OF DISCHARGE: 07/22/2017 HOSPITAL COURSE: The patient was admitted to [facility] [place] [facility] on 07/18/2017 and the patient was discharged on 07/22/2017 in stable condition to [facility]. The patient's initial admitting diagnoses of congestive heart failure, cardiomegaly, increased BNP, failure to thrive and dementia, and history of cardiovascular disease. The patient was admitted, had a cardiovascular consultation with Dr. Jose J Pozo and the medication was adjusted and heart failure improved and the diagnosis was [id number] congestive heart failure, improving and history of dementia, history of cardiovascular disease and the prognosis is guarded and the patient also had a Neurology consultation and I will follow the patient at [facility]. MEDICATIONS: See the reconciliation sheet. DIET: Two-gram sodium diet. ACTIVITY: As tolerated. JOB# [id number]
== END 2017-07-22 16:41 | DRG 291 ==
LOC: MSI 21:47
PROVIDERS: ADMIT Internal Medicine; ATTEND Internal Medicine
DX: I11.0 Hypertensive heart disease with heart failure (principal); G93.40 Encephalopathy, unspecified; F32.3 Major depressive disorder, single episode, severe with psychotic features; I42.9 Cardiomyopathy, unspecified; I69.351 Hemiplegia and hemiparesis following cerebral infarction affecting right dominant side; N39.0 Urinary tract infection, site not specified; J20.9 Acute bronchitis, unspecified; F02.80 Dementia in other diseases classified elsewhere, unspecified severity, without behavioral disturbance, psychotic disturbance, mood disturbance, and anxiety; G30.9 Alzheimer's disease, unspecified; I50.43 Acute on chronic combined systolic (congestive) and diastolic (congestive) heart failure; I44.7 Left bundle-branch block, unspecified; E78.5 Hyperlipidemia, unspecified; E03.9 Hypothyroidism, unspecified; F29 Unspecified psychosis not due to a substance or known physiological condition; Z79.82 Long term (current) use of aspirin; Z79.899 Other long term (current) drug therapy; I69.322 Dysarthria following cerebral infarction; I69.320 Aphasia following cerebral infarction; Z88.5 Allergy status to narcotic agent
CPT/HCPCS: 36415-UA; 71045-TC; 80048-TC; 80053-TC; 80061-TC; 81001-TC; 83880-TC; 84484-TC; 85025-TC; 87086-90; 87804-TC; 93005; 94760; J1940; J3370; J7040; Z7610

== ENCOUNTER 2018-11-07 18:30 | Inpatient (IN) | payer MEDICARE, OTHER ==
--- NOTE | 2018-11-07 18:55 | ED Physician Chart ---
ED Chief Complaint/HPI - Patient Information Date Seen:: 11/07/18 Time Seen:: 18:50 Chief Complaint:: cough wheezing History of Present Illness:: 72 yr old female former smoker with cough wheezing from intermediate no sob or cp no fever or headache or dizziness Allergies:: Allergies Allergy/AdvReac Type Severity Reaction Status Date / Time meperidine [From Demerol] Allergy Unknown Verified 07/18/17 22:26 Vitals:: Vital Signs - 8 hr 11/07/18 18:40 Temp 98.2 F HR 66 RR 16 BP 155/86 O2 Sat % 93 ED Review of Systems - Review of Systems General/Constitutional: No fever, No chills, No weight loss, No weakness, No diaphoresis, No edema, No loss of appetite Skin: No skin lesions, No rash, No bruising Head: No headache, No light-headedness Eyes: No loss of vision, No pain, No diplopia ENT: No earache, No nasal drainage, No sore throat, No tinnitus Neck: No neck pain, No swelling, No thyromegaly, No stiffness, No mass noted Cardio Vascular: No chest pain, No palpitations, No PND, No orthopnea, No edema Pulmonary: Cough, Wheezing GI: No nausea, No vomiting, No diarrhea, No pain, No melena, No hematochezia, No constipation, No hematemesis G/U: No dysuria, No frequency, No hematuria Musculoskeletal: No bone or joint pain, No back pain, No muscle pain Endocrine: No polyuria, No polydipsia Psychiatric: No prior psych history, No depression, No anxiety, No suicidal ideation Hematopoietic: No bruising, No lymphadenopathy Allergic/Immuno: No urticaria, No angioedema Neurological: No syncope, No focal symptoms, No weakness, No paresthesia, No headache, No seizure, No dizziness, No confusion, No vertigo ED Past Medical History - Past Medical History Past Medical History: CAD, CHF, Asthma/COPD, CVA/TIA, Dyslipidemia, Seizures ( psychosis), Thyroid disorder, Dementia Psychiatricy History: Depression, Other Family Medical History - Family Member Mother History Unknown: Yes ED Physical Exam - Physical Examination General/Constitutional: Well-developed, well-nourished Head: Atraumatic ENMT: External ears, nose nl Neck: Nontender Respiratory: Nl effort/Exclusion GI: No tenderness/rebounding/guarding : No CVA tenderness Extremities: No tenderness or effusion Neuro/Psych: Alert/oriented ED Assessment - Assessment General Assessment: cough congestion ED Septic Shock - . Is Septic Shock (SBP<90, OR Lactate>4 mmol\L) present?: No - <6hrs of presentation: Vital Signs: Vital Signs - 8 hr 11/07/18 18:40 Temp 98.2 F HR 66 RR 16 BP 155/86 O2 Sat % 93 ED Reassessment (Disposition) - Reassessment Reassessment:: cough bronchitis,copd exacerbation - Diagnosis Diagnosis:: as above - Patient Disposition Admitted to:: Telemetry Condition at Disposition:: Stable
[2018-11-07] MEDS ORDERED: Albuterol/Ipratropium Neb 3 ML AERS HHN ONE ×2 (18:57→19:16)
[2018-11-07] MEDS ORDERED: Dexamethasone Sodium Phos 4 mg/mL Vial INH STA (18:57)
[2018-11-07] MEDS ORDERED: Dexamethasone Sodium Phos 4 mg/mL Vial ONE (19:17)
[2018-11-07 19:31] LABS: ALB/GLOB RATIO 1.4 (1.0-1.8); ALBUMIN 4.1 gm/dL (3.7-5.3); ALKALINE PHOSPHATASE 81 U/L (34-104); ANION GAP 12.3 (7.0-16.0); BILIRUBIN,TOTAL 0.4 mg/dL (0.3-1.0); BUN - UREA NITROGEN 21 mg/dL (7-25); CALCIUM SERUM 9.1 mg/dL (8.6-10.3); CARBON DIOXIDE 25.5 mEq/L (21.0-31.0); CHLORIDE 104 mEq/L (98-107); CREATININE - SERUM 0.7 mg/dL (0.6-1.2); GLUCOSE 96 mg/dL (70-105); POTASSIUM SERUM 3.8 mEq/L (3.5-5.1); SGOT 18 U/L (13-39); SGPT/ALT 20 U/L (7-52); SODIUM SERUM 138 mEq/L (136-145); TOTAL PROTEIN,SERUM 7.1 gm/dL (6.0-8.3)
[2018-11-07 19:45] LABS: URINE SOURCE CLEAN C
[2018-11-07 19:48] LABS: URINE BILIRUBIN NEGATIVE (NEGATIVE); URINE BLOOD LARGE (NEGATIVE); URINE GLUCOSE (UA) NEGATIVE (NEGATIVE); URINE KETONE NEGATIVE (NEGATIVE); URINE LEUKOCYTE ESTERASE MODERATE (NEGATIVE); URINE MICROSCOPIC INDICATED? YES; URINE NITRATE NEGATIVE (NEGATIVE); URINE PROTEIN NEGATIVE (NEGATIVE); URINE UROBILINOGEN 0.2 E.U./dL (0.2 - 1.0)
[2018-11-07 20:01] LABS: URINE CLARITY HAZY (CLEAR); URINE COLOR YELLOW
[2018-11-07 20:03] LABS: URINE BACTERIA FEW /hpf (NONE SEEN); URINE EPITHELIAL CELLS FEW /lpf (FEW)
[2018-11-07 20:04] LABS: HEMATOCRIT 38.5 % (41.0-60); HEMOGLOBIN 13.1 gm/dL (12-16); MEAN CELL VOLUME 93.2 fl (81-100); MEAN CORPUSCULAR HEMOGLOBIN 31.7 pg (27.0-31.0); RED BLOOD COUNT 4.13 Mil/cmm (3.80-5.20); RED CELL DISTRIBUTION WIDTH 13.8 % (11.5-20.0); WHITE BLOOD COUNT 6.9 Th/cmm (4.8-10.8)
[2018-11-07 20:05] LABS: % BASOPHILS 0.9 % (0.0-2.0); % EOSINOPHILS 4.3 % (0.0-5.0); % LYMPHOCYTES 34.5 % (20.0-50.0); % MONOCYTES 6.4 % (2.0-10.0); % NEUTROPHILS 53.9 % (40.0-80.0); BASOPHILE ABSOLUTE 0.1 Th/cumm (0-0.2); EOSINOPHILE ABSOLUTE 0.3 Th/cmm (0.1-0.4); LYMPHOCYTE ABSOLUTE 2.4 Th/cmm (1.5-3.0); MONOCYTE ABSOLUTE 0.4 Th/cmm (0.3-1.0); NEUTROPHILE ABSOLUTE 3.7 Th/cmm (1.8-8.0); PLATELET COUNT 256 Th/cmm (150-400)
[2018-11-07] MEDS ORDERED: Piperacillin Sodium/Tazobact 3.375 gm Vial IV ONE (20:17)
[2018-11-07 21:31] VITALS: BP 111/63
[2018-11-07] MEDS: D5-0.45NS 1,000 ML IV SCH (21:59)
[2018-11-08] MEDS ORDERED: Piperacillin Sodium/Tazobact 3.375 gm Vial IV ONE (04:50)
[2018-11-08 05:10] LABS: ANION GAP 13.4 (7.0-16.0); BUN - UREA NITROGEN 17 mg/dL (7-25); CALCIUM SERUM 9.1 mg/dL (8.6-10.3); CARBON DIOXIDE 24.5 mEq/L (21.0-31.0); CHLORIDE 104 mEq/L (98-107); CREATININE - SERUM 0.8 mg/dL (0.6-1.2); GLUCOSE 188 mg/dL (70-105); POTASSIUM SERUM 3.9 mEq/L (3.5-5.1); SODIUM SERUM 138 mEq/L (136-145)
--- NOTE | 2018-11-08 08:17 | Diagnostic Imaging Report ---
CHEST X-RAY: AP view INDICATION: Cough and congestion COMPARISON: Chest x-ray 07/19/2017 FINDINGS: Left basal densities noted. Mild cardiomegaly is noted with atherosclerosis. Degenerative changes of the spine are noted with scoliosis. IMPRESSION: Left basal density. Atelectasis versus infiltrate of the left base cannot be excluded. There is probable small left effusion. Mild Cardiomegaly and atherosclerotic vascular disease.
[2018-11-08 09:02] LABS: HEMATOCRIT 44.5 % (41.0-60); RED BLOOD COUNT 4.68 Mil/cmm (3.80-5.20); WHITE BLOOD COUNT 8.7 Th/cmm (4.8-10.8)
[2018-11-08 09:03] LABS: MEAN CELL VOLUME 94.9 fl (81-100); MEAN CORPUSCULAR HGB CONC 33.7 pg (28.0-36.0); PLATELET COUNT 210 Th/cmm (150-400); RED CELL DISTRIBUTION WIDTH 13.5 % (11.5-20.0)
--- NOTE | 2018-11-08 11:22 | History and Physical ---
History of Present Illness - HPI Chief Complaint: Patient was brought into ER due to complaints of cough and wheezing. HPI: 72 y/o female patient was admitted to [facility] due to complaints of cough and wheezing. Patient has history of CAD, CHF, Asthma/Copd, CVA/TIA, Dyslipidemia, Seizures, Thyroid disorder, Psychosis, Dementia and Depression. Patient had an ER assessment and had a complete workup done. Patient had a chest x-ray performed which showed Probable small left effusion, Mild Cardiomegaly and Atherosclerotic vascular disease. Patient was diagnosed with Cough, bronchitis and Copd exacerbation. Patient will have a Pulmonary consult, Psych consult and Cardiology consult. I will continue to follow, treat and monitor patient. Patient will continue current treatment plan as ordered. Vital Signs: Last Vital Signs Temp 97.1 F 11/08/18 08:00 Pulse 85 11/08/18 09:43 Resp 18 11/08/18 10:00 BP 103/59 11/08/18 08:00 Pulse Ox 95 11/08/18 09:43 Past Medical History Cardiovascular: Report: CAD, CHF Pulmonary: Report: Asthma, COPD [employer]: Report: CVA, Dementia, Seizure, TIA GI: Report: No Pertinent Hx Psych: Report: Depression, Other (Dementia.) Musculoskeletal: Report: No Pertinent Hx Infectious Disease: Report: No Pertinent Hx Renal/: Report: No Pertinent Hx Endocrine: Report: Other (Thyroid disorder.) Dermatology: Report: No Pertinent Hx - Past Surgical History Past Surgical History: No pertinent Hx Family Medical History - Family Member Mother History Unknown: Yes Social History Smoke: No Alcohol: None Drugs: None Lives: [facility] Domestic Violence: Negative Health Maintenance Health Maintenance: Other (please see chart.) - Medications Home Medications: Home Medication Medication Instructions Recorded Type Aspirin EC [Ecotrin] 81 mg PO DAILY 07/18/17 History Carvedilol [Coreg] 3.125 mg PO DAILY 07/18/17 History Docusate Sodium [Col-Rite] 250 gm PO DAILY 07/18/17 History Levetiracetam [Keppra] 500 mg PO Q12H 07/18/17 History Levothyroxine [Synthroid] 100 mcg PO DAILY 07/18/17 History Lisinopril [Zestril] 5 mg PO DAILY tab 07/22/17 Rx Acetaminophen [Tylenol] 650 mg PO Q6H PRN 11/07/18 History Atorvastatin Calcium [Lipitor] 10 mg PO HS 11/07/18 History Escitalopram Oxalate [Lexapro] 10 mg PO DAILY 11/07/18 History Furosemide [Lasix] 40 mg PO DAILY 11/07/18 History Other Medications: Please see Medication reconciliation sheet. - Allergies Allergies/Adverse Reactions: Allergies Allergy/AdvReac Type Severity Reaction Status Date / Time meperidine [From Demerol] Allergy Unknown Verified 07/18/17 22:26 Review of Systems - Review of Systems Review of Systems: 72 year old female has a cough and congestion, Was found to have Copd exacerbation and Bronchitis. Constitutional: Report: Weakness Eyes: Report: No Significant ENT: Report: No Significant Respiratory: Report: Cough Cardiovascular: Report: No Significant Gastrointestinal: Report: No Significant Genitourinary: Report: No Significant Musculoskeletal: Report: No Significant Skin: Report: No Significant Neurological: Report: Weakness Physical Exam - Physical Exam HEENT: Report: Ears Nose Throat within normal limits Neck: Report: Within normal limits Cardiovascular Systems: Report: +s1/s2 noted Respiratory: Report: Wheezing, Rhonchi Abdomen: Report: Non-tender to palpation Back: Report: Inspection of back is within normal limits. Extremities: Report: Non-tender to palpation. Skin: Report: Color of skin is within normal limits Neuro/Psych: Report: Depressed affect, Other (Hx of Dementia.) - Lab Results All Lab Results last 24 hours: Laboratory Results - last 24 hr 11/07/18 11/07/18 11/07/18 19:00 19:00 19:35 WBC 6.9 RBC 4.13 Hgb 13.1 Hct 38.5 L MCV 93.2 MCH 31.7 H MCHC Differential 34.0 RDW 13.8 Plt Count 256 MPV 8.1 Add Manual Diff Neutrophils % 53.9 Lymphocytes % 34.5 Monocytes % 6.4 Eosinophils % 4.3 Basophils % 0.9 Sodium 138 Potassium 3.8 Chloride 104 Carbon Dioxide 25.5 Anion Gap 12.3 BUN 21 Creatinine 0.7 Est GFR ( Amer) TNP Est GFR (Non-Af Amer) TNP BUN/Creatinine Ratio 30.0 Glucose 96 Calcium 9.1 Total Bilirubin 0.4 AST 18 ALT 20 Alkaline Phosphatase 81 Total Protein 7.1 Albumin 4.1 Globulin 3.0 Albumin/Globulin Ratio 1.4 Urine Source CLEAN C Urine Color YELLOW Urine Clarity HAZY Urine pH 6.0 Ur Specific [place] <= 1.005 Urine Protein NEGATIVE Urine Glucose (UA) NEGATIVE Urine Ketones NEGATIVE Urine Blood LARGE H Urine Nitrate NEGATIVE Urine Bilirubin NEGATIVE Urine Urobilinogen 0.2 Ur Leukocyte Esterase MODERATE H Urine RBC 10-25 H Urine WBC 6-10 H Ur Epithelial Cells FEW Urine Bacteria FEW 11/08/18 11/08/18 04:05 04:05 WBC 8.7 D RBC 4.68 Hgb 15.0 Hct 44.5 D MCV 94.9 MCH 32.0 H MCHC Differential 33.7 RDW 13.5 Plt Count 210 MPV 8.1 Add Manual Diff Neutrophils % Lymphocytes % Monocytes % Eosinophils % Basophils % Sodium 138 Potassium 3.9 Chloride 104 Carbon Dioxide 24.5 Anion Gap 13.4 BUN 17 Creatinine 0.8 Est GFR ( Amer) TNP Est GFR (Non-Af Amer) TNP BUN/Creatinine Ratio 21.3 Glucose 188 H Calcium 9.1 Total Bilirubin AST ALT Alkaline Phosphatase Total Protein Albumin Globulin Albumin/Globulin Ratio Urine Source Urine Color Urine Clarity Urine pH Ur Specific [place] Urine Protein Urine Glucose (UA) Urine Ketones Urine Blood Urine Nitrate Urine Bilirubin Urine Urobilinogen Ur Leukocyte Esterase Urine RBC Urine WBC Ur Epithelial Cells Urine Bacteria - Assessment Assessment: Current Active Problems Problem Status Onset COUGH AND CONGESTION Acute CAD. CHF. Asthma/Copd. History of CVA/TIA. Dyslipidemia. Seizures. Thyroid disorder. History of Psychosis. Dementia. Depression. Bronchitis. Copd exacerbation. - Plan Plan: Continuation of care. Pulmonary consult, Cardiology consult and Psych consult requested Monitor Vitals, Labs,Monitor Chest x-ray. Continue present meds as directed. Monitor Diet/Nutritional support. Respiratory treatments and Pulmonary support. Supplemental Oxygen. Aspiration precaution. Deep Suctioning prn. Psych Management per Psych. Pain Management. Safety precaution. Supportive care. Seizure precaution. Fall precaution, frequent nursing rounds, and as needed restraints to prevent fall. Continue collaborating with consulting specialists, case management and nursing team. Will Monitor patient and continue current treatment plan as ordered.
[2018-11-08] MEDS: D5-0.45NS 1,000 ML IV SCH (15:48)
[2018-11-08] MEDS: Atorvastatin Calcium 10 MG TAB PO SCH (20:56)
[2018-11-09 08:08] LABS: A1C 5.4 % (4.8-5.6)
--- NOTE | 2018-11-09 10:22 | Internal Medicine Prog Note ---
Internal Medicine Subjective - Subjective Service Date: 11/09/18 Patient seen and examined:: with staff (t) Patient is:: awake, verbal, interactive, arousable, in bed Internal Medicine Objective - Results Result Diagrams: 11/08/18 04:05 11/08/18 04:05 Recent Labs: Laboratory Last Values WBC 8.7 Th/cmm (4.8-10.8) D 11/08/18 04:05 RBC 4.68 Mil/cmm (3.80-5.20) 11/08/18 04:05 Hgb 15.0 gm/dL (12-16) 11/08/18 04:05 Hct 44.5 % (41.0-60) D 11/08/18 04:05 MCV 94.9 fl (81-100) 11/08/18 04:05 MCH 32.0 pg (27.0-31.0) H 11/08/18 04:05 MCHC Differential 33.7 pg (28.0-36.0) 11/08/18 04:05 RDW 13.5 % (11.5-20.0) 11/08/18 04:05 Plt Count 210 Th/cmm (150-400) 11/08/18 04:05 MPV 8.1 fl 11/08/18 04:05 Add Manual Diff 11/08/18 04:05 Neutrophils % 53.9 % (40.0-80.0) 11/07/18 19:00 Lymphocytes % 34.5 % (20.0-50.0) 11/07/18 19:00 Monocytes % 6.4 % (2.0-10.0) 11/07/18 19:00 Eosinophils % 4.3 % (0.0-5.0) 11/07/18 19:00 Basophils % 0.9 % (0.0-2.0) 11/07/18 19:00 Sodium 138 mEq/L (136-145) 11/08/18 04:05 Potassium 3.9 mEq/L (3.5-5.1) 11/08/18 04:05 Chloride 104 mEq/L (98-107) 11/08/18 04:05 Carbon Dioxide 24.5 mEq/L (21.0-31.0) 11/08/18 04:05 Anion Gap 13.4 (7.0-16.0) 11/08/18 04:05 BUN 17 mg/dL (7-25) 11/08/18 04:05 Creatinine 0.8 mg/dL (0.6-1.2) 11/08/18 04:05 Est GFR ( Amer) TNP 11/08/18 04:05 Est GFR (Non-Af Amer) TNP 11/08/18 04:05 BUN/Creatinine Ratio 21.3 11/08/18 04:05 Glucose 188 mg/dL (70-105) H 11/08/18 04:05 Calcium 9.1 mg/dL (8.6-10.3) 11/08/18 04:05 Total Bilirubin 0.4 mg/dL (0.3-1.0) 11/07/18 19:00 AST 18 U/L (13-39) 11/07/18 19:00 ALT 20 U/L (7-52) 11/07/18 19:00 Alkaline Phosphatase 81 U/L (34-104) 11/07/18 19:00 Total Protein 7.1 gm/dL (6.0-8.3) 11/07/18 19:00 Albumin 4.1 gm/dL (3.7-5.3) 11/07/18 19:00 Globulin 3.0 gm/dL 11/07/18 19:00 Albumin/Globulin Ratio 1.4 (1.0-1.8) 11/07/18 19:00 Urine Source CLEAN C 11/07/18 19:35 Urine Color YELLOW 11/07/18 19:35 Urine Clarity HAZY (CLEAR) 11/07/18 19:35 Urine pH 6.0 (4.6 - 8.0) 11/07/18 19:35 Ur Specific [place] <= 1.005 (1.005-1.030) 11/07/18 19:35 Urine Protein NEGATIVE mg/dL (NEGATIVE) 11/07/18 19:35 Urine Glucose (UA) NEGATIVE mg/dL (NEGATIVE) 11/07/18 19:35 Urine Ketones NEGATIVE mg/dL (NEGATIVE) 11/07/18 19:35 Urine Blood LARGE (NEGATIVE) H 11/07/18 19:35 Urine Nitrate NEGATIVE (NEGATIVE) 11/07/18 19:35 Urine Bilirubin NEGATIVE (NEGATIVE) 11/07/18 19:35 Urine Urobilinogen 0.2 E.U./dL (0.2 - 1.0) 11/07/18 19:35 Ur Leukocyte Esterase MODERATE (NEGATIVE) H 11/07/18 19:35 Urine RBC 10-25 /hpf (0-5) H 11/07/18 19:35 Urine WBC 6-10 /hpf (0-5) H 11/07/18 19:35 Ur Epithelial Cells FEW /lpf (FEW) 11/07/18 19:35 Urine Bacteria FEW /hpf (NONE SEEN) 11/07/18 19:35 - Physical Exam Vitals and I&O: Vital Signs Temp 96.7 F 11/09/18 08:00 Pulse 56 11/09/18 08:08 Resp 18 11/09/18 08:00 BP 114/57 11/09/18 08:08 Pulse Ox 97 11/09/18 08:00 Intake & Output 11/08/18 11/09/18 11/09/18 18:59 06:59 18:59 Intake Total 940.833 50 Output Total 3 Balance 940.833 47 Weight (lbs) 74.843 kg Intake: Intake, IV Amount 940.833 50 D5-0.45NS 1,000 ml @ 50 890.833 mls/hr IV .Q20H [facility] Rx#: [id number] Piperacillin Sodium/ 50 50 Tazobact 3.375 gm In Sodium Chloride 0.9% 50 ml @ 100 mls/hr IV Q8HR [facility] Rx#:[id number] Output: Urine 3 Other: # Bowel Movements 1 Stool Characteristics Soft Soft Weight Source Bedscale Active Medications: Current Medications Acetaminophen (Tylenol) 650 mg PO Q6H PRN PRN Reason: Pain (Mild) Stop: 01/07/19 10:01 Aspirin (Ecotrin) 81 mg PO DAILY [facility] Stop: 01/08/19 08:59 Last Admin: 11/09/18 08:13 Dose: 81 mg Atorvastatin Calcium (Lipitor) 10 mg PO HS [facility]; Protocol Stop: 01/07/19 20:59 Last Admin: 11/08/18 20:56 Dose: 10 mg Carvedilol (Coreg) 3.125 mg PO DAILY [facility] Stop: 01/08/19 08:59 Last Admin: 11/09/18 08:08 Dose: Not Given Docusate Sodium (Colace) 250 mg PO DAILY [facility] Stop: 01/08/19 08:59 Last Admin: 11/09/18 08:12 Dose: 250 mg Dextrose/Sodium Chloride (D5-0.45ns) 1,000 mls @ 50 mls/hr IV .Q20H [facility] Stop: 01/06/19 20:29 Last Admin: 11/08/18 15:48 Dose: 50 mls/hr Piperacillin Sod/Tazobactam (Sod 3.375 gm/ Sodium Chloride) 50 mls @ 100 mls/ hr IV Q8HR [facility] Stop: 01/06/19 20:59 Last Admin: 11/09/18 05:38 Dose: 100 mls/hr General: weak, alert, no lethargic, no congested, no demented, no vegetative state, no obtunded, no disheveled, no thin, no obese, no bilateral temporal wasting, no cachectic, no edematous, no appears older, no appears younger HEENT: NC/AT, PERRLA, EOMI, anicteric sclerae, throat clear, no thyromegaly, no dry oral mucosa, no craniotomy scar, no thinning hair, no poor dentition Neck: Supple, No JVD, No thyromegaly, +2 carotid pulse wo bruit, No LAD Lungs: CTAB Cardiovascular: RRR, Normal S1, Normal S2, without murmur, no with murmur, no tachy, no gerson Abdomen: soft, non-tender, non-distended, no tender, no distended Extremities: clear, pedal pulses, no edema Neurological: no change, alert, bedbound, no lethargic, no disorganized, no muscle weakness, no gait stable, no unsteady, no unable to follow command, no spastic Internal Medicine Assmt/Plan - Assessment Assessment: 1. Copd exacerbation. 2. CAD. 3. CHF. 4. Asthma/Copd. 5. History of CVA/TIA. 6. Dyslipidemia. 7. Seizures. 8. Thyroid disorder. 9. History of Psychosis. 10. Dementia. 11. Depression. 12. Bronchitis. 13. UTI. 14. Left sided pleural effusion. - Plan Plan: Continue same treatment. Follow upp as per consultants.
[2018-11-09] MEDS: D5-0.45NS 1,000 ML IV SCH (11:38)
--- NOTE | 2018-11-09 17:04 | General Progress Note ---
Subjective - Review of Systems Service Date: 11/09/18 Subjective: Chest still complained of shortness of breath and cough with expectoration Objective - Results Result Diagrams: 11/08/18 04:05 11/08/18 04:05 Recent Labs: Laboratory Last Values WBC 8.7 Th/cmm (4.8-10.8) D 11/08/18 04:05 RBC 4.68 Mil/cmm (3.80-5.20) 11/08/18 04:05 Hgb 15.0 gm/dL (12-16) 11/08/18 04:05 Hct 44.5 % (41.0-60) D 11/08/18 04:05 MCV 94.9 fl (81-100) 11/08/18 04:05 MCH 32.0 pg (27.0-31.0) H 11/08/18 04:05 MCHC Differential 33.7 pg (28.0-36.0) 11/08/18 04:05 RDW 13.5 % (11.5-20.0) 11/08/18 04:05 Plt Count 210 Th/cmm (150-400) 11/08/18 04:05 MPV 8.1 fl 11/08/18 04:05 Add Manual Diff 11/08/18 04:05 Neutrophils % 53.9 % (40.0-80.0) 11/07/18 19:00 Lymphocytes % 34.5 % (20.0-50.0) 11/07/18 19:00 Monocytes % 6.4 % (2.0-10.0) 11/07/18 19:00 Eosinophils % 4.3 % (0.0-5.0) 11/07/18 19:00 Basophils % 0.9 % (0.0-2.0) 11/07/18 19:00 Sodium 138 mEq/L (136-145) 11/08/18 04:05 Potassium 3.9 mEq/L (3.5-5.1) 11/08/18 04:05 Chloride 104 mEq/L (98-107) 11/08/18 04:05 Carbon Dioxide 24.5 mEq/L (21.0-31.0) 11/08/18 04:05 Anion Gap 13.4 (7.0-16.0) 11/08/18 04:05 BUN 17 mg/dL (7-25) 11/08/18 04:05 Creatinine 0.8 mg/dL (0.6-1.2) 11/08/18 04:05 Est GFR ( Amer) TNP 11/08/18 04:05 Est GFR (Non-Af Amer) TNP 11/08/18 04:05 BUN/Creatinine Ratio 21.3 11/08/18 04:05 Glucose 188 mg/dL (70-105) H 11/08/18 04:05 Calcium 9.1 mg/dL (8.6-10.3) 11/08/18 04:05 Total Bilirubin 0.4 mg/dL (0.3-1.0) 11/07/18 19:00 AST 18 U/L (13-39) 11/07/18 19:00 ALT 20 U/L (7-52) 11/07/18 19:00 Alkaline Phosphatase 81 U/L (34-104) 11/07/18 19:00 Total Protein 7.1 gm/dL (6.0-8.3) 11/07/18 19:00 Albumin 4.1 gm/dL (3.7-5.3) 11/07/18 19:00 Globulin 3.0 gm/dL 11/07/18 19:00 Albumin/Globulin Ratio 1.4 (1.0-1.8) 11/07/18 19:00 Urine Source CLEAN C 11/07/18 19:35 Urine Color YELLOW 11/07/18 19:35 Urine Clarity HAZY (CLEAR) 11/07/18 19:35 Urine pH 6.0 (4.6 - 8.0) 11/07/18 19:35 Ur Specific [place] <= 1.005 (1.005-1.030) 11/07/18 19:35 Urine Protein NEGATIVE mg/dL (NEGATIVE) 11/07/18 19:35 Urine Glucose (UA) NEGATIVE mg/dL (NEGATIVE) 11/07/18 19:35 Urine Ketones NEGATIVE mg/dL (NEGATIVE) 11/07/18 19:35 Urine Blood LARGE (NEGATIVE) H 11/07/18 19:35 Urine Nitrate NEGATIVE (NEGATIVE) 11/07/18 19:35 Urine Bilirubin NEGATIVE (NEGATIVE) 11/07/18 19:35 Urine Urobilinogen 0.2 E.U./dL (0.2 - 1.0) 11/07/18 19:35 Ur Leukocyte Esterase MODERATE (NEGATIVE) H 11/07/18 19:35 Urine RBC 10-25 /hpf (0-5) H 11/07/18 19:35 Urine WBC 6-10 /hpf (0-5) H 11/07/18 19:35 Ur Epithelial Cells FEW /lpf (FEW) 11/07/18 19:35 Urine Bacteria FEW /hpf (NONE SEEN) 11/07/18 19:35 - Physical Exam Vitals and I&O: Vital Signs Temp 98.4 F 11/09/18 16:00 Pulse 86 11/09/18 16:00 Resp 18 11/09/18 16:00 BP 124/67 11/09/18 16:00 Pulse Ox 96 11/09/18 16:00 Intake & Output 11/08/18 11/09/18 11/09/18 18:59 06:59 18:59 Intake Total 940.833 100 991.667 Output Total 3 Balance 940.833 97 991.667 Weight (lbs) 74.843 kg Intake: Intake, IV Amount 940.833 100 991.667 D5-0.45NS 1,000 ml @ 50 890.833 991.667 mls/hr IV .Q20H [facility] Rx#: [id number] Piperacillin Sodium/ 50 100 Tazobact 3.375 gm In Sodium Chloride 0.9% 50 ml @ 100 mls/hr IV Q8HR [facility] Rx#:[id number] Output: Urine 3 Other: # Bowel Movements 1 Stool Characteristics Soft Soft Soft Weight Source Bedscale Active Medications: Current Medications Acetaminophen (Tylenol) 650 mg PO Q6H PRN PRN Reason: Pain (Mild) Stop: 01/07/19 10:01 Aspirin (Ecotrin) 81 mg PO DAILY [facility] Stop: 01/08/19 08:59 Last Admin: 11/09/18 08:13 Dose: 81 mg Atorvastatin Calcium (Lipitor) 10 mg PO HS [facility]; Protocol Stop: 01/07/19 20:59 Last Admin: 11/08/18 20:56 Dose: 10 mg Carvedilol (Coreg) 3.125 mg PO DAILY [facility] Stop: 01/08/19 08:59 Last Admin: 11/09/18 08:08 Dose: Not Given Docusate Sodium (Colace) 250 mg PO DAILY [facility] Stop: 01/08/19 08:59 Last Admin: 11/09/18 08:12 Dose: 250 mg Dextrose/Sodium Chloride (D5-0.45ns) 1,000 mls @ 50 mls/hr IV .Q20H [facility] Stop: 01/06/19 20:29 Last Admin: 11/09/18 11:38 Dose: 50 mls/hr Piperacillin Sod/Tazobactam (Sod 3.375 gm/ Sodium Chloride) 50 mls @ 100 mls/ hr IV Q8HR [facility] Stop: 01/06/19 20:59 Last Admin: 11/09/18 12:09 Dose: 100 mls/hr General: Alert, No acute distress HEENT: Mucous membr. moist/pink Neck: Supple, JVD, +2 carotid pulse wo bruit (flat) Cardiovascular: Regular rate, Normal S1, Normal S2, Systolic murmurs Lungs: Other (wheezing and rhonchi) Abdomen: Bowel sounds, Soft, Other (no organomegaly) Extremities: Other (febrile for 4 pulses) Neurological: Cranial nerves 3-12 NL, Reflexes 2+ Assessment/Plan - Problem List Patient Problems: All Active Problems COUGH AND CONGESTION (Acute) - Assessment Assessment: Acute exacerbation of COPD Congestive heart failure chronic diastolic dysfunction Stable angina CVA with left affect Seizure disorder Hypothyroid Psychosis Dementia Major depression Urinary tract infection Left pleural effusion - Plan Plan: Continue present management will get echocardiogram to evaluate left ventricular function Nutritional Asmnt/Malnutr-PDOC - Dietary Evaluation Malnutrition Findings (Please click <Entered> for more info): Nutritional Asmnt/Malnutrition Start: 11/09/18 15: 49 Text: Status: Complete Freq: Protocol: Document 11/09/18 15:50 [email or web address] (Rec: 11/09/18 16:00 [email or web address] [id number]) Nutritional Asmnt/Malnutrition Patient General Information Nutritional Screening Moderate Risk Diagnosis COPD exac, UTI Pertinent Medical Hx/Surgical Hx CAD, CHF, COPD, CVA/TIA, dyslipidmiea, seizure, psychosis, dementia, depression Subjective Information Pt unable to fully express needs in open-ended manner, agreeable to NKFA, tolerating pureed with no swallow difficulty, +appetite however finding foods not palatable, declined oral nutrition supplement, no N/V/D/C, states UBW 120 lb however likely erroneous. RN confirms no pressure injury. Current Diet Order/ Nutrition Support pureed, CCHO 45g cardiac SERGIO Patient / S.O Not Indicated Pertinent Medications Lipitor, Colace, abx Pertinent Labs Glu 188 Nutritional Hx/Data Height 1.65 m Height (Calculated Centimeters) 165.1 Current Weight (lbs) 74.843 kg Weight (Calculated Kilograms) 74.8 Weight (Calculated Grams) 61575.7 [place] Body Weight 125 lb Body Mass Index (BMI) 27.4 Weight Status Overweight GI Symptoms GI Symptoms None Last BM 6/4 Difficult in: Chewing Food Allergies No Skin Integrity/Comment: no pressure injury Current %PO Fair (50-74%) Estimated Nutritional Goals BEE in Kcals: Using Current wt Calories/Kcals/Kg 20-25 Kcals Calculated 1417-8351 Protein: Using Current wt Protein g/k+ Protein Calculated 75+ Fluid: ml 6769-3365 Nutritional Problem 1. Problem Problem inadequate po intake Etiology pt states not finding foods palatable Signs/Symptoms: 50-75% po intake noted Intervention/Recommendation Comments 1. continue current diet at this time 2. consider Glucerna 1 carton daily if pt agreeable 3. Monitor PO intake, wt, labs and skin integrity Expected Outcomes/Goals Expected Outcomes/Goals 1. PO intake to meet at least 75% of nutritional needs. 2. Wt stability, skin to remain intact, labs to approach WNL. Pricilla Bynum RD
[2018-11-09] MEDS: Atorvastatin Calcium 10 MG TAB PO SCH (22:15)
--- NOTE | 2018-11-09 23:08 | Consultation ---
DATE OF CONSULTATION: 11/09/2018 PULMONARY CONSULTATION Patient of Dr. Ram. Thank you, Dr. Ram, for this consultation. HISTORY OF PRESENT ILLNESS: This is a 72-year-old female, very pleasant, who is presented with chest pain and chest congestion and cough and was admitted for treatment and management. The patient has a history of CHF, COPD, asthma, history of dementia and psychosis. The patient is feeling a bit better, less congestion. PAST MEDICAL HISTORY: As above. SOCIAL HISTORY: History of smoking for many years. She cannot quantify the amount of use or number of cigarettes. REVIEW OF SYSTEMS: GENERAL: Some weakness and fatigue. CARDIOVASCULAR: Chest pain. No palpitation. RESPIRATORY: Congestion and cough. No shortness of breath. GASTROINTESTINAL: No nausea or vomiting. PHYSICAL EXAMINATION: GENERAL: She is awake, alert, not in acute distress. VITAL SIGNS: Temperature 98.4, pulse 86, respirations 18, blood pressure 124/67, saturation 96%. HEENT: Atraumatic, normocephalic. Pupils react to light and accommodation. Ears, nose and throat normal. NECK: Supple. No JVD. CHEST: Few rhonchi bilaterally. HEART: Regular rhythm. ABDOMEN: Soft. EXTREMITIES: No edema. LABORATORY DATA: WBC is 8.7, hemoglobin 15.0, hematocrit 24.5, platelets 210. Sodium 130, potassium 3.9, BUN 17, creatinine 0.8. Chest x-ray showed left base atelectasis and infiltrate. IMPRESSION: 1. Respiratory failure. 2. Chronic obstructive pulmonary disease exacerbation. 3. New pneumonia. PLAN: 1. Continue IV antibiotics. 2. Add nebulized treatment. 3. Add Pulmicort and supportive care. Follow up chest x-ray. We will follow the patient with you. Thank you very much for this consultation. JOB# [id number]
[2018-11-10] MEDS: Albuterol/Ipratropium Neb 3 ML AERS HHN SCH ×4 (01:56→18:35)
[2018-11-10] MEDS: Budesonide 0.5 Mg/2 mL Ud HHN SCH ×2 (06:56→18:35)
--- NOTE | 2018-11-10 07:30 | Consultation ---
DATE OF CONSULTATION: 11/10/2018 PSYCHIATRIC CONSULT AGE: 72. SEX: Female. PHYSICIAN: Dr. Ram. AGRISCIENCE TECHNOLOGY INSTRUCTOR: Dr. Edward. TYPE OF THE REPORT: Psychiatric consult. REASON FOR THE CONSULT: Agitation. HISTORY OF PRESENT ILLNESS: The patient is a 72-year-old female who was admitted to the hospital because of COPD exacerbation. The patient has been easily agitated and restless, has been also irritable. The patient also has difficulty following staff directions. The patient also gets more agitated when staff trying to help her with her ADLs. Otherwise, no other major behavioral problems. The patient has diagnosis of dementia. PAST PSYCHIATRIC HISTORY: The patient has history of dementia and seems she also has psychosis. PAST MEDICAL HISTORY: The patient has an exacerbation of COPD as well as hypertension and history of CVA, cardiomegaly, hypothyroidism and epilepsy. SOCIAL HISTORY: The patient lives in a custodial. No known alcohol or drug use. ALLERGIES: Demerol. MENTAL STATUS EXAM: The patient appears her stated age. Anxious. Irritable moods. Disorganized thoughts. The patient is unable to provide any accurate information about herself. The patient did not answer question regarding hallucinations or delusions, but actively responding. The patient is alert, but seems to be disoriented to time, place, person and situation. Impaired immediate, recent and remote memories. Poor insight and poor judgment. ASSESSMENT: PRIMARY DIAGNOSIS: Unspecified psychosis. SECONDARY DIAGNOSIS: Dementia, moderate to severe. TREATMENT PLAN: We will monitor the patient's behavior and condition closely. We will start the patient on Risperdal and we will adjust the dose. Thanks to Dr. Ram and we will follow up with you. JOB# [id number]
[2018-11-10] MEDS: D5-0.45NS 1,000 ML IV SCH (10:08)
--- NOTE | 2018-11-10 12:44 | General Progress Note ---
Subjective - Review of Systems Service Date: 11/10/18 Subjective: Chest still complained of shortness of breath and cough with expectoration Objective - Results Result Diagrams: 11/08/18 04:05 11/08/18 04:05 Recent Labs: Laboratory Last Values WBC 8.7 Th/cmm (4.8-10.8) D 11/08/18 04:05 RBC 4.68 Mil/cmm (3.80-5.20) 11/08/18 04:05 Hgb 15.0 gm/dL (12-16) 11/08/18 04:05 Hct 44.5 % (41.0-60) D 11/08/18 04:05 MCV 94.9 fl (81-100) 11/08/18 04:05 MCH 32.0 pg (27.0-31.0) H 11/08/18 04:05 MCHC Differential 33.7 pg (28.0-36.0) 11/08/18 04:05 RDW 13.5 % (11.5-20.0) 11/08/18 04:05 Plt Count 210 Th/cmm (150-400) 11/08/18 04:05 MPV 8.1 fl 11/08/18 04:05 Add Manual Diff 11/08/18 04:05 Neutrophils % 53.9 % (40.0-80.0) 11/07/18 19:00 Lymphocytes % 34.5 % (20.0-50.0) 11/07/18 19:00 Monocytes % 6.4 % (2.0-10.0) 11/07/18 19:00 Eosinophils % 4.3 % (0.0-5.0) 11/07/18 19:00 Basophils % 0.9 % (0.0-2.0) 11/07/18 19:00 Sodium 138 mEq/L (136-145) 11/08/18 04:05 Potassium 3.9 mEq/L (3.5-5.1) 11/08/18 04:05 Chloride 104 mEq/L (98-107) 11/08/18 04:05 Carbon Dioxide 24.5 mEq/L (21.0-31.0) 11/08/18 04:05 Anion Gap 13.4 (7.0-16.0) 11/08/18 04:05 BUN 17 mg/dL (7-25) 11/08/18 04:05 Creatinine 0.8 mg/dL (0.6-1.2) 11/08/18 04:05 Est GFR ( Amer) TNP 11/08/18 04:05 Est GFR (Non-Af Amer) TNP 11/08/18 04:05 BUN/Creatinine Ratio 21.3 11/08/18 04:05 Glucose 188 mg/dL (70-105) H 11/08/18 04:05 Calcium 9.1 mg/dL (8.6-10.3) 11/08/18 04:05 Total Bilirubin 0.4 mg/dL (0.3-1.0) 11/07/18 19:00 AST 18 U/L (13-39) 11/07/18 19:00 ALT 20 U/L (7-52) 11/07/18 19:00 Alkaline Phosphatase 81 U/L (34-104) 11/07/18 19:00 B-Natriuretic Peptide 45.7 pg/mL (5.0-100.0) 11/10/18 04:55 Total Protein 7.1 gm/dL (6.0-8.3) 11/07/18 19:00 Albumin 4.1 gm/dL (3.7-5.3) 11/07/18 19:00 Globulin 3.0 gm/dL 11/07/18 19:00 Albumin/Globulin Ratio 1.4 (1.0-1.8) 11/07/18 19:00 Urine Source CLEAN C 11/07/18 19:35 Urine Color YELLOW 11/07/18 19:35 Urine Clarity HAZY (CLEAR) 11/07/18 19:35 Urine pH 6.0 (4.6 - 8.0) 11/07/18 19:35 Ur Specific [place] <= 1.005 (1.005-1.030) 11/07/18 19:35 Urine Protein NEGATIVE mg/dL (NEGATIVE) 11/07/18 19:35 Urine Glucose (UA) NEGATIVE mg/dL (NEGATIVE) 11/07/18 19:35 Urine Ketones NEGATIVE mg/dL (NEGATIVE) 11/07/18 19:35 Urine Blood LARGE (NEGATIVE) H 11/07/18 19:35 Urine Nitrate NEGATIVE (NEGATIVE) 11/07/18 19:35 Urine Bilirubin NEGATIVE (NEGATIVE) 11/07/18 19:35 Urine Urobilinogen 0.2 E.U./dL (0.2 - 1.0) 11/07/18 19:35 Ur Leukocyte Esterase MODERATE (NEGATIVE) H 11/07/18 19:35 Urine RBC 10-25 /hpf (0-5) H 11/07/18 19:35 Urine WBC 6-10 /hpf (0-5) H 11/07/18 19:35 Ur Epithelial Cells FEW /lpf (FEW) 11/07/18 19:35 Urine Bacteria FEW /hpf (NONE SEEN) 11/07/18 19:35 - Physical Exam Vitals and I&O: Vital Signs Temp 97.4 F 11/10/18 11:32 Pulse 70 11/10/18 11:32 Resp 18 11/10/18 11:32 BP 114/62 11/10/18 11:32 Pulse Ox 97 11/10/18 11:32 Intake & Output 11/09/18 11/10/18 11/10/18 18:59 06:59 18:59 Intake Total 1341.534 105 0222 Balance 1341.311 948 2277 Weight (lbs) 74.843 kg 74.843 kg 85 kg Intake: Intake, IV Amount 1041.013 901 4433 D5-0.45NS 1,000 ml @ 50 431.584 6452 mls/hr IV .Q20H [facility] Rx#: [id number] Piperacillin Sodium/ 50 100 Tazobact 3.375 gm In Sodium Chloride 0.9% 50 ml @ 100 mls/hr IV Q8HR [facility] Rx#:[id number] Oral 300 100 240 Other: # Voids 2 3 # Bowel Movements 0 0 1 Stool Characteristics Soft Soft Soft Brown Brown Weight Source Bedscale Bedscale Bedscale Active Medications: Current Medications Acetaminophen (Tylenol) 650 mg PO Q6H PRN PRN Reason: Pain (Mild) Stop: 01/07/19 10:01 Albuterol/Ipratropium (Duoneb Neb) 3 ml HHN Q6HRT [facility] Stop: 01/09/19 00:59 Last Admin: 11/10/18 06:56 Dose: 3 ml Aspirin (Ecotrin) 81 mg PO DAILY [facility] Stop: 01/08/19 08:59 Last Admin: 11/10/18 08:41 Dose: 81 mg Atorvastatin Calcium (Lipitor) 10 mg PO HS [facility]; Protocol Stop: 01/07/19 20:59 Last Admin: 11/09/18 22:15 Dose: 10 mg Budesonide (Pulmicort) 0.5 mg HHN BIDRT [facility] Stop: 01/09/19 06:59 Last Admin: 11/10/18 06:56 Dose: 0.5 mg Carvedilol (Coreg) 3.125 mg PO DAILY [facility] Stop: 01/08/19 08:59 Last Admin: 11/10/18 08:41 Dose: 3.125 mg Docusate Sodium (Colace) 250 mg PO DAILY [facility] Stop: 01/08/19 08:59 Last Admin: 11/10/18 08:41 Dose: 250 mg Dextrose/Sodium Chloride (D5-0.45ns) 1,000 mls @ 50 mls/hr IV .Q20H [facility] Stop: 01/06/19 20:29 Last Admin: 11/10/18 10:08 Dose: 50 mls/hr Piperacillin Sod/Tazobactam (Sod 3.375 gm/ Sodium Chloride) 50 mls @ 100 mls/ hr IV Q8HR [facility] Stop: 01/06/19 20:59 Last Admin: 11/10/18 12:16 Dose: 100 mls/hr Risperidone (Risperdal) 0.25 mg PO BID [facility]; Protocol Stop: 01/09/19 08:59 Last Admin: 11/10/18 08:41 Dose: 0.25 mg General: Alert, No acute distress HEENT: Mucous membr. moist/pink Neck: Supple, JVD, +2 carotid pulse wo bruit (flat) Cardiovascular: Regular rate, Normal S1, Normal S2, Systolic murmurs Lungs: Other (wheezing and rhonchi) Abdomen: Bowel sounds, Soft, Other (no organomegaly) Extremities: Other (febrile for 4 pulses) Neurological: Cranial nerves 3-12 NL, Reflexes 2+ Assessment/Plan - Problem List Patient Problems: All Active Problems COUGH AND CONGESTION (Acute) - Assessment Assessment: Acute exacerbation of COPD Congestive heart failure chronic diastolic dysfunction Stable angina CVA with left affect Seizure disorder Hypothyroid Psychosis Dementia Major depression Urinary tract infection Left pleural effusion - Plan Plan: Continue present management will get echocardiogram to evaluate left ventricular function Nutritional Asmnt/Malnutr-PDOC - Dietary Evaluation Malnutrition Findings (Please click <Entered> for more info): Nutritional Asmnt/Malnutrition Start: 11/09/18 15: 49 Text: Status: Complete Freq: Protocol: Document 11/09/18 15:50 [email or web address] (Rec: 11/09/18 16:00 [email or web address]) Nutritional Asmnt/Malnutrition Patient General Information Nutritional Screening Moderate Risk Diagnosis COPD exac, UTI Pertinent Medical Hx/Surgical Hx CAD, CHF, COPD, CVA/TIA, dyslipidmiea, seizure, psychosis, dementia, depression Subjective Information Pt unable to fully express needs in open-ended manner, agreeable to NKFA, tolerating pureed with no swallow difficulty, +appetite however finding foods not palatable, declined oral nutrition supplement, no N/V/D/C, states UBW 120 lb however likely erroneous. RN confirms no pressure injury. Current Diet Order/ Nutrition Support pureed, CCHO 45g cardiac SERGIO Patient / S.O Not Indicated Pertinent Medications Lipitor, Colace, abx Pertinent Labs Glu 188 Nutritional Hx/Data Height 1.65 m Height (Calculated Centimeters) 165.1 Current Weight (lbs) 74.843 kg Weight (Calculated Kilograms) 74.8 Weight (Calculated Grams) 31041.7 [place] Body Weight 125 lb Body Mass Index (BMI) 27.4 Weight Status Overweight GI Symptoms GI Symptoms None Last BM 6/4 Difficult in: Chewing Food Allergies No Skin Integrity/Comment: no pressure injury Current %PO Fair (50-74%) Estimated Nutritional Goals BEE in Kcals: Using Current wt Calories/Kcals/Kg 20-25 Kcals Calculated 6068-8443 Protein: Using Current wt Protein g/k+ Protein Calculated 75+ Fluid: ml 0229-6597 Nutritional Problem 1. Problem Problem inadequate po intake Etiology pt states not finding foods palatable Signs/Symptoms: 50-75% po intake noted Intervention/Recommendation Comments 1. continue current diet at this time 2. consider Glucerna 1 carton daily if pt agreeable 3. Monitor PO intake, wt, labs and skin integrity Expected Outcomes/Goals Expected Outcomes/Goals 1. PO intake to meet at least 75% of nutritional needs. 2. Wt stability, skin to remain intact, labs to approach WNL. Pricilla Bynum RD
--- NOTE | 2018-11-10 13:12 | Internal Medicine Prog Note ---
Internal Medicine Subjective - Subjective Patient seen and examined:: with staff (t) Patient is:: awake, verbal, interactive, arousable, in bed Internal Medicine Objective - Results Result Diagrams: 11/08/18 04:05 11/08/18 04:05 Recent Labs: Laboratory Last Values WBC 8.7 Th/cmm (4.8-10.8) D 11/08/18 04:05 RBC 4.68 Mil/cmm (3.80-5.20) 11/08/18 04:05 Hgb 15.0 gm/dL (12-16) 11/08/18 04:05 Hct 44.5 % (41.0-60) D 11/08/18 04:05 MCV 94.9 fl (81-100) 11/08/18 04:05 MCH 32.0 pg (27.0-31.0) H 11/08/18 04:05 MCHC Differential 33.7 pg (28.0-36.0) 11/08/18 04:05 RDW 13.5 % (11.5-20.0) 11/08/18 04:05 Plt Count 210 Th/cmm (150-400) 11/08/18 04:05 MPV 8.1 fl 11/08/18 04:05 Add Manual Diff 11/08/18 04:05 Neutrophils % 53.9 % (40.0-80.0) 11/07/18 19:00 Lymphocytes % 34.5 % (20.0-50.0) 11/07/18 19:00 Monocytes % 6.4 % (2.0-10.0) 11/07/18 19:00 Eosinophils % 4.3 % (0.0-5.0) 11/07/18 19:00 Basophils % 0.9 % (0.0-2.0) 11/07/18 19:00 Sodium 138 mEq/L (136-145) 11/08/18 04:05 Potassium 3.9 mEq/L (3.5-5.1) 11/08/18 04:05 Chloride 104 mEq/L (98-107) 11/08/18 04:05 Carbon Dioxide 24.5 mEq/L (21.0-31.0) 11/08/18 04:05 Anion Gap 13.4 (7.0-16.0) 11/08/18 04:05 BUN 17 mg/dL (7-25) 11/08/18 04:05 Creatinine 0.8 mg/dL (0.6-1.2) 11/08/18 04:05 Est GFR ( Amer) TNP 11/08/18 04:05 Est GFR (Non-Af Amer) TNP 11/08/18 04:05 BUN/Creatinine Ratio 21.3 11/08/18 04:05 Glucose 188 mg/dL (70-105) H 11/08/18 04:05 Calcium 9.1 mg/dL (8.6-10.3) 11/08/18 04:05 Total Bilirubin 0.4 mg/dL (0.3-1.0) 11/07/18 19:00 AST 18 U/L (13-39) 11/07/18 19:00 ALT 20 U/L (7-52) 11/07/18 19:00 Alkaline Phosphatase 81 U/L (34-104) 11/07/18 19:00 B-Natriuretic Peptide 45.7 pg/mL (5.0-100.0) 11/10/18 04:55 Total Protein 7.1 gm/dL (6.0-8.3) 11/07/18 19:00 Albumin 4.1 gm/dL (3.7-5.3) 11/07/18 19:00 Globulin 3.0 gm/dL 11/07/18 19:00 Albumin/Globulin Ratio 1.4 (1.0-1.8) 11/07/18 19:00 Urine Source CLEAN C 11/07/18 19:35 Urine Color YELLOW 11/07/18 19:35 Urine Clarity HAZY (CLEAR) 11/07/18 19:35 Urine pH 6.0 (4.6 - 8.0) 11/07/18 19:35 Ur Specific [place] <= 1.005 (1.005-1.030) 11/07/18 19:35 Urine Protein NEGATIVE mg/dL (NEGATIVE) 11/07/18 19:35 Urine Glucose (UA) NEGATIVE mg/dL (NEGATIVE) 11/07/18 19:35 Urine Ketones NEGATIVE mg/dL (NEGATIVE) 11/07/18 19:35 Urine Blood LARGE (NEGATIVE) H 11/07/18 19:35 Urine Nitrate NEGATIVE (NEGATIVE) 11/07/18 19:35 Urine Bilirubin NEGATIVE (NEGATIVE) 11/07/18 19:35 Urine Urobilinogen 0.2 E.U./dL (0.2 - 1.0) 11/07/18 19:35 Ur Leukocyte Esterase MODERATE (NEGATIVE) H 11/07/18 19:35 Urine RBC 10-25 /hpf (0-5) H 11/07/18 19:35 Urine WBC 6-10 /hpf (0-5) H 11/07/18 19:35 Ur Epithelial Cells FEW /lpf (FEW) 11/07/18 19:35 Urine Bacteria FEW /hpf (NONE SEEN) 11/07/18 19:35 - Physical Exam Vitals and I&O: Vital Signs Temp 97.4 F 11/10/18 11:32 Pulse 70 11/10/18 11:32 Resp 18 11/10/18 11:32 BP 114/62 11/10/18 11:32 Pulse Ox 97 11/10/18 11:32 Intake & Output 11/09/18 11/10/18 11/10/18 18:59 06:59 18:59 Intake Total 1341.527 863 1621 Balance 1341.541 921 8623 Weight (lbs) 74.843 kg 74.843 kg 85 kg Intake: Intake, IV Amount 1041.671 395 1002 D5-0.45NS 1,000 ml @ 50 073.961 4529 mls/hr IV .Q20H [facility] Rx#: [id number] Piperacillin Sodium/ 50 100 Tazobact 3.375 gm In Sodium Chloride 0.9% 50 ml @ 100 mls/hr IV Q8HR [facility] Rx#:[id number] Oral 300 100 240 Other: # Voids 2 3 # Bowel Movements 0 0 1 Stool Characteristics Soft Soft Soft Brown Brown Weight Source Bedscale Bedscale Bedscale Active Medications: Current Medications Acetaminophen (Tylenol) 650 mg PO Q6H PRN PRN Reason: Pain (Mild) Stop: 01/07/19 10:01 Last Admin: 11/10/18 13:11 Dose: 650 mg Albuterol/Ipratropium (Duoneb Neb) 3 ml HHN Q6HRT [facility] Stop: 01/09/19 00:59 Last Admin: 11/10/18 06:56 Dose: 3 ml Aspirin (Ecotrin) 81 mg PO DAILY [facility] Stop: 01/08/19 08:59 Last Admin: 11/10/18 08:41 Dose: 81 mg Atorvastatin Calcium (Lipitor) 10 mg PO HS [facility]; Protocol Stop: 01/07/19 20:59 Last Admin: 11/09/18 22:15 Dose: 10 mg Budesonide (Pulmicort) 0.5 mg HHN BIDRT [facility] Stop: 01/09/19 06:59 Last Admin: 11/10/18 06:56 Dose: 0.5 mg Carvedilol (Coreg) 3.125 mg PO DAILY [facility] Stop: 01/08/19 08:59 Last Admin: 11/10/18 08:41 Dose: 3.125 mg Docusate Sodium (Colace) 250 mg PO DAILY [facility] Stop: 01/08/19 08:59 Last Admin: 11/10/18 08:41 Dose: 250 mg Dextrose/Sodium Chloride (D5-0.45ns) 1,000 mls @ 50 mls/hr IV .Q20H [facility] Stop: 01/06/19 20:29 Last Admin: 11/10/18 10:08 Dose: 50 mls/hr Piperacillin Sod/Tazobactam (Sod 3.375 gm/ Sodium Chloride) 50 mls @ 100 mls/ hr IV Q8HR [facility] Stop: 01/06/19 20:59 Last Admin: 11/10/18 12:16 Dose: 100 mls/hr Risperidone (Risperdal) 0.25 mg PO BID [facility]; Protocol Stop: 01/09/19 08:59 Last Admin: 11/10/18 08:41 Dose: 0.25 mg General: weak, alert, no lethargic, no congested, no demented, no vegetative state, no obtunded, no disheveled, no thin, no obese, no bilateral temporal wasting, no cachectic, no edematous, no appears older, no appears younger HEENT: NC/AT, PERRLA, EOMI, anicteric sclerae, throat clear, no thyromegaly, no dry oral mucosa, no craniotomy scar, no thinning hair, no poor dentition Neck: Supple, No JVD, No thyromegaly, +2 carotid pulse wo bruit, No LAD Lungs: CTAB Cardiovascular: RRR, Normal S1, Normal S2, without murmur, no with murmur, no tachy, no [place] Abdomen: soft, non-tender, non-distended, no tender, no distended Extremities: clear, pedal pulses, no edema Neurological: no change, alert, bedbound, no lethargic, no disorganized, no muscle weakness, no gait stable, no unsteady, no unable to follow command, no spastic Internal Medicine Assmt/Plan - Assessment Assessment: 1. Copd exacerbation. 2. CAD. 3. CHF. 4. Asthma/Copd. 5. History of CVA/TIA. 6. Dyslipidemia. 7. Seizures. 8. Thyroid disorder. 9. History of Psychosis. 10. Dementia. 11. Depression. 12. Bronchitis. 13. UTI. 14. Left sided pleural effusion. - Plan Plan: Continue same treatment. Follow up as per consultants. Nutritional Asmnt/Malnutr-PDOC - Dietary Evaluation Malnutrition Findings (Please click <Entered> for more info): Nutritional Asmnt/Malnutrition Start: 11/09/18 15: 49 Text: Status: Complete Freq: Protocol: Document 11/09/18 15:50 [email or web address] (Rec: 11/09/18 16:00 [email or web address] [email or web address]) Nutritional Asmnt/Malnutrition Patient General Information Nutritional Screening Moderate Risk Diagnosis COPD exac, UTI Pertinent Medical Hx/Surgical Hx CAD, CHF, COPD, CVA/TIA, dyslipidmiea, seizure, psychosis, dementia, depression Subjective Information Pt unable to fully express needs in open-ended manner, agreeable to NKFA, tolerating pureed with no swallow difficulty, +appetite however finding foods not palatable, declined oral nutrition supplement, no N/V/D/C, states UBW 120 lb however likely erroneous. RN confirms no pressure injury. Current Diet Order/ Nutrition Support pureed, CCHO 45g cardiac SERGIO Patient / S.O Not Indicated Pertinent Medications Lipitor, Colace, abx Pertinent Labs Glu 188 Nutritional Hx/Data Height 1.65 m Height (Calculated Centimeters) 165.1 Current Weight (lbs) 74.843 kg Weight (Calculated Kilograms) 74.8 Weight (Calculated Grams) 81034.7 [place] Body Weight 125 lb Body Mass Index (BMI) 27.4 Weight Status Overweight GI Symptoms GI Symptoms None Last BM 6/4 Difficult in: Chewing Food Allergies No Skin Integrity/Comment: no pressure injury Current %PO Fair (50-74%) Estimated Nutritional Goals BEE in Kcals: Using Current wt Calories/Kcals/Kg 20-25 Kcals Calculated 9420-5367 Protein: Using Current wt Protein g/k+ Protein Calculated 75+ Fluid: ml 8008-5832 Nutritional Problem 1. Problem Problem inadequate po intake Etiology pt states not finding foods palatable Signs/Symptoms: 50-75% po intake noted Intervention/Recommendation Comments 1. continue current diet at this time 2. consider Glucerna 1 carton daily if pt agreeable 3. Monitor PO intake, wt, labs and skin integrity Expected Outcomes/Goals Expected Outcomes/Goals 1. PO intake to meet at least 75% of nutritional needs. 2. Wt stability, skin to remain intact, labs to approach WNL. Pricilla Bynum RD
--- NOTE | 2018-11-10 14:57 | Consultation ---
DATE OF CONSULTATION: 11/09/2018 PATIENT OF: Dr. Ram. HISTORY OF PRESENT ILLNESS: This is a 72-year-old female patient who was brought to the hospital complaining of chest pain, cough, shortness of breath. The patient was found to have acute exacerbation of COPD with history of congestive failure and hence cardiac consult is requested. PAST MEDICAL HISTORY: COPD, congestive heart failure, diastolic dysfunction, stable angina, CVA with late effect, seizure disorder, hypothyroid, psychosis, dementia, major depression, urinary tract infection, left pleural effusion. FAMILY HISTORY: Unremarkable. SOCIAL HISTORY: No history of smoking, alcohol abuse. ALLERGIES: No known allergies. PHYSICAL EXAMINATION: VITAL SIGNS: Blood pressure 130/80, pulse 70, respirations 20. HEAD: Normocephalic. No lumps or bumps. EYES: Pupils equal, reactive to light. Fundi show AV nicking, sclerae white, conjunctivae pink. NECK: Carotid 2+. Normal upstroke. JVD 10 cm above sternal angle. Thyroid not palpable. Lymph nodes not palpable. CHEST: Shows increased AP diameter. No kyphosis, scoliosis. LUNGS: Bilateral bronchovesicular breath sounds, wheezing, rhonchi, prolonged expiration. HEART: PMI fifth intercostal space with lateral to midclavicular line. S1, S2. No S3, S4. ABDOMEN: Soft. Liver, spleen not palpable. No organomegaly. Bowel sounds active. NEUROLOGIC: Unremarkable. EXTREMITIES: Peripheral pulses 2+. No pedal edema. The patient's blood culture is negative. CLINICAL IMPRESSION: 1. Acute exacerbation of chronic obstructive pulmonary disease. 2. Congestive heart failure. 3. Diastolic dysfunction, chronic. 4. Stable angina. 5. Cerebrovascular accident with late effect. 6. Seizure disorder. 7. Hypothyroid. 8. Psychosis. 9. Dementia. 10. Major depression. 11. Urinary tract infection. 12. Left pleural effusion. PLAN: The patient to continue present care and monitor the patient. Infectious Disease evaluation. JOB# [id number]
[2018-11-10] MEDS: Atorvastatin Calcium 10 MG TAB PO SCH (20:40)
[2018-11-11] MEDS: Albuterol/Ipratropium Neb 3 ML AERS HHN SCH ×3 (00:24→13:30)
[2018-11-11] MEDS: D5-0.45NS 1,000 ML IV SCH (04:57)
[2018-11-11] MEDS: Budesonide 0.5 Mg/2 mL Ud HHN SCH (07:22)
--- NOTE | 2018-11-11 08:15 | Infectious Disease Prog Note ---
Infectious Disease Subjective - Review of Systems Service Date: 11/11/18 Subjective: No new change, no fever,. no sob. Infectious Disease Objective - Results Result Diagrams: 11/08/18 04:05 11/08/18 04:05 Recent Labs: Laboratory Last Values WBC 8.7 Th/cmm (4.8-10.8) D 11/08/18 04:05 RBC 4.68 Mil/cmm (3.80-5.20) 11/08/18 04:05 Hgb 15.0 gm/dL (12-16) 11/08/18 04:05 Hct 44.5 % (41.0-60) D 11/08/18 04:05 MCV 94.9 fl (81-100) 11/08/18 04:05 MCH 32.0 pg (27.0-31.0) H 11/08/18 04:05 MCHC Differential 33.7 pg (28.0-36.0) 11/08/18 04:05 RDW 13.5 % (11.5-20.0) 11/08/18 04:05 Plt Count 210 Th/cmm (150-400) 11/08/18 04:05 MPV 8.1 fl 11/08/18 04:05 Add Manual Diff 11/08/18 04:05 Neutrophils % 53.9 % (40.0-80.0) 11/07/18 19:00 Lymphocytes % 34.5 % (20.0-50.0) 11/07/18 19:00 Monocytes % 6.4 % (2.0-10.0) 11/07/18 19:00 Eosinophils % 4.3 % (0.0-5.0) 11/07/18 19:00 Basophils % 0.9 % (0.0-2.0) 11/07/18 19:00 Sodium 138 mEq/L (136-145) 11/08/18 04:05 Potassium 3.9 mEq/L (3.5-5.1) 11/08/18 04:05 Chloride 104 mEq/L (98-107) 11/08/18 04:05 Carbon Dioxide 24.5 mEq/L (21.0-31.0) 11/08/18 04:05 Anion Gap 13.4 (7.0-16.0) 11/08/18 04:05 BUN 17 mg/dL (7-25) 11/08/18 04:05 Creatinine 0.8 mg/dL (0.6-1.2) 11/08/18 04:05 Est GFR ( Amer) TNP 11/08/18 04:05 Est GFR (Non-Af Amer) TNP 11/08/18 04:05 BUN/Creatinine Ratio 21.3 11/08/18 04:05 Glucose 188 mg/dL (70-105) H 11/08/18 04:05 Calcium 9.1 mg/dL (8.6-10.3) 11/08/18 04:05 Total Bilirubin 0.4 mg/dL (0.3-1.0) 11/07/18 19:00 AST 18 U/L (13-39) 11/07/18 19:00 ALT 20 U/L (7-52) 11/07/18 19:00 Alkaline Phosphatase 81 U/L (34-104) 11/07/18 19:00 B-Natriuretic Peptide 45.7 pg/mL (5.0-100.0) 11/10/18 04:55 Total Protein 7.1 gm/dL (6.0-8.3) 11/07/18 19:00 Albumin 4.1 gm/dL (3.7-5.3) 11/07/18 19:00 Globulin 3.0 gm/dL 11/07/18 19:00 Albumin/Globulin Ratio 1.4 (1.0-1.8) 11/07/18 19:00 Urine Source CLEAN C 11/07/18 19:35 Urine Color YELLOW 11/07/18 19:35 Urine Clarity HAZY (CLEAR) 11/07/18 19:35 Urine pH 6.0 (4.6 - 8.0) 11/07/18 19:35 Ur Specific [place] <= 1.005 (1.005-1.030) 11/07/18 19:35 Urine Protein NEGATIVE mg/dL (NEGATIVE) 11/07/18 19:35 Urine Glucose (UA) NEGATIVE mg/dL (NEGATIVE) 11/07/18 19:35 Urine Ketones NEGATIVE mg/dL (NEGATIVE) 11/07/18 19:35 Urine Blood LARGE (NEGATIVE) H 11/07/18 19:35 Urine Nitrate NEGATIVE (NEGATIVE) 11/07/18 19:35 Urine Bilirubin NEGATIVE (NEGATIVE) 11/07/18 19:35 Urine Urobilinogen 0.2 E.U./dL (0.2 - 1.0) 11/07/18 19:35 Ur Leukocyte Esterase MODERATE (NEGATIVE) H 11/07/18 19:35 Urine RBC 10-25 /hpf (0-5) H 11/07/18 19:35 Urine WBC 6-10 /hpf (0-5) H 11/07/18 19:35 Ur Epithelial Cells FEW /lpf (FEW) 11/07/18 19:35 Urine Bacteria FEW /hpf (NONE SEEN) 11/07/18 19:35 - Physical Exam Vitals and I&O: Vital Signs Temp 97 F 11/11/18 04:00 Pulse 66 11/11/18 07:31 Resp 20 11/11/18 07:31 BP 93/54 11/11/18 04:00 Pulse Ox 94 11/11/18 07:31 Intake & Output 11/10/18 11/11/18 11/11/18 18:59 06:59 18:59 Intake Total 1790 990.833 Balance 1790 990.833 Weight (lbs) 85.275 kg Intake: Intake, IV Amount 1050 990.833 D5-0.45NS 1,000 ml @ 50 1000 940.833 mls/hr IV .Q20H [facility] Rx#: [id number] Piperacillin Sodium/ 50 50 Tazobact 3.375 gm In Sodium Chloride 0.9% 50 ml @ 100 mls/hr IV Q8HR [facility] Rx#:[id number] Oral 740 Other: # Voids 3 # Bowel Movements 0 Stool Characteristics Soft Soft Brown Brown Weight Source Bedscale Active Medications: Current Medications Acetaminophen (Tylenol) 650 mg PO Q6H PRN PRN Reason: Pain (Mild) Stop: 01/07/19 10:01 Last Admin: 11/10/18 13:11 Dose: 650 mg Albuterol/Ipratropium (Duoneb Neb) 3 ml HHN Q6HRT [facility] Stop: 01/09/19 00:59 Last Admin: 11/11/18 07:22 Dose: 3 ml Aspirin (Ecotrin) 81 mg PO DAILY [facility] Stop: 01/08/19 08:59 Last Admin: 11/10/18 08:41 Dose: 81 mg Atorvastatin Calcium (Lipitor) 10 mg PO HS [facility]; Protocol Stop: 01/07/19 20:59 Last Admin: 11/10/18 20:40 Dose: 10 mg Budesonide (Pulmicort) 0.5 mg HHN BIDRT [facility] Stop: 01/09/19 06:59 Last Admin: 11/11/18 07:22 Dose: 0.5 mg Carvedilol (Coreg) 3.125 mg PO DAILY [facility] Stop: 01/08/19 08:59 Last Admin: 11/10/18 08:41 Dose: 3.125 mg Docusate Sodium (Colace) 250 mg PO DAILY [facility] Stop: 01/08/19 08:59 Last Admin: 11/10/18 08:41 Dose: 250 mg Dextrose/Sodium Chloride (D5-0.45ns) 1,000 mls @ 50 mls/hr IV .Q20H [facility] Stop: 01/06/19 20:29 Last Admin: 11/11/18 04:57 Dose: 50 mls/hr Risperidone (Risperdal) 0.25 mg PO BID [facility]; Protocol Stop: 01/09/19 08:59 Last Admin: 11/10/18 16:33 Dose: 0.25 mg General: no acute distress, well developed, well nourished HEENT: atraumatic, normocephalic, PERRLA, EOMI Neck: supple, no thyromegaly Cardiovascular: S1S2, regular Lungs: clear to auscultation bilaterally, clear to percussion Abdomen: soft, no tender, no distended Extremities: no cyanosis, no clubbing, no edema Neurological: awake, alert, oriented Skin: intact Infectious Disease Assmt/Plan - Problem List Patient Problems: All Active Problems COUGH AND CONGESTION (Acute) - Assessment Assessment: 1. Copd exacerbation. 2. CAD. 3. CHF. 4. Asthma/Copd. 5. History of CVA/TIA. 6. Dyslipidemia. 7. Seizures. 8. Thyroid disorder. 9. History of Psychosis. 10. Dementia. 11. Depression. 12. Bronchitis. 13. UTI. 14. Left sided pleural effusion. - Plan Plan: DC to SNF under [facility] if ok by consultants. Nutritional Asmnt/Malnutr-PDOC - Dietary Evaluation Malnutrition Findings (Please click <Entered> for more info): Nutritional Asmnt/Malnutrition Start: 11/09/18 15: 49 Text: Status: Complete Freq: Protocol: Document 11/09/18 15:50 [email or web address] (Rec: 11/09/18 16:00 [email or web address] [email or web address]) Nutritional Asmnt/Malnutrition Patient General Information Nutritional Screening Moderate Risk Diagnosis COPD exac, UTI Pertinent Medical Hx/Surgical Hx CAD, CHF, COPD, CVA/TIA, dyslipidmiea, seizure, psychosis, dementia, depression Subjective Information Pt unable to fully express needs in open-ended manner, agreeable to NKFA, tolerating pureed with no swallow difficulty, +appetite however finding foods not palatable, declined oral nutrition supplement, no N/V/D/C, states UBW 120 lb however likely erroneous. RN confirms no pressure injury. Current Diet Order/ Nutrition Support pureed, CCHO 45g cardiac SERGIO Patient / S.O Not Indicated Pertinent Medications Lipitor, Colace, abx Pertinent Labs Glu 188 Nutritional Hx/Data Height 1.65 m Height (Calculated Centimeters) 165.1 Current Weight (lbs) 74.843 kg Weight (Calculated Kilograms) 74.8 Weight (Calculated Grams) 92431.7 [place] Body Weight 125 lb Body Mass Index (BMI) 27.4 Weight Status Overweight GI Symptoms GI Symptoms None Last BM 6/4 Difficult in: Chewing Food Allergies No Skin Integrity/Comment: no pressure injury Current %PO Fair (50-74%) Estimated Nutritional Goals BEE in Kcals: Using Current wt Calories/Kcals/Kg 20-25 Kcals Calculated 2757-4588 Protein: Using Current wt Protein g/k+ Protein Calculated 75+ Fluid: ml 7493-4293 Nutritional Problem 1. Problem Problem inadequate po intake Etiology pt states not finding foods palatable Signs/Symptoms: 50-75% po intake noted Intervention/Recommendation Comments 1. continue current diet at this time 2. consider Glucerna 1 carton daily if pt agreeable 3. Monitor PO intake, wt, labs and skin integrity Expected Outcomes/Goals Expected Outcomes/Goals 1. PO intake to meet at least 75% of nutritional needs. 2. Wt stability, skin to remain intact, labs to approach WNL. Pricilla Bynum RD
--- NOTE | 2018-11-11 09:13 | Diagnostic Imaging Report ---
CHEST X-RAY: AP view INDICATION: Shortness of breath COMPARISON: 11/08/2018 FINDINGS: Small bilateral effusions are noted. Cardiomegaly is noted. IMPRESSION: Small bilateral effusions. Pneumonia of the lung bases cannot be excluded. Cardiomegaly.
--- NOTE | 2018-11-11 11:58 | Progress Notes ---
DATE: 11/10/2018 PULMONARY PROGRESS NOTE SUBJECTIVE: The patient appears to be doing okay, in no distress. OBJECTIVE: VITAL SIGNS: Temperature is 97.4, pulse 85, respirations 18, blood pressure 124/62, saturation is 95%. CHEST: Good breath sounds. No wheezing; no crackles; few rhonchi, decreased. HEART: Regular rate and rhythm. ABDOMEN: Soft, no tenderness. EXTREMITIES: No edema. LABORATORY DATA: WBC is 8.7, hemoglobin 15.0, hematocrit 44.5, platelets 210. Sodium 138, potassium 3.9, BUN 17, creatinine 0.8. IMPRESSION: 1. Respiratory failure. 2. Pneumonia. 3. Dysphagia. 4. Weakness. 5. Chronic obstructive pulmonary disease. PLAN: 1. Continue nebulizer treatment. 2. Antibiotics. 3. Follow up chest x-ray. JOB# [id number] [email or web address]
--- NOTE | 2018-11-11 12:32 | General Progress Note ---
Subjective - Review of Systems Service Date: 11/11/18 Subjective: Chest still complained of shortness of breath and cough with expectoration Objective - Results Result Diagrams: 11/08/18 04:05 11/08/18 04:05 Recent Labs: Laboratory Last Values WBC 8.7 Th/cmm (4.8-10.8) D 11/08/18 04:05 RBC 4.68 Mil/cmm (3.80-5.20) 11/08/18 04:05 Hgb 15.0 gm/dL (12-16) 11/08/18 04:05 Hct 44.5 % (41.0-60) D 11/08/18 04:05 MCV 94.9 fl (81-100) 11/08/18 04:05 MCH 32.0 pg (27.0-31.0) H 11/08/18 04:05 MCHC Differential 33.7 pg (28.0-36.0) 11/08/18 04:05 RDW 13.5 % (11.5-20.0) 11/08/18 04:05 Plt Count 210 Th/cmm (150-400) 11/08/18 04:05 MPV 8.1 fl 11/08/18 04:05 Add Manual Diff 11/08/18 04:05 Neutrophils % 53.9 % (40.0-80.0) 11/07/18 19:00 Lymphocytes % 34.5 % (20.0-50.0) 11/07/18 19:00 Monocytes % 6.4 % (2.0-10.0) 11/07/18 19:00 Eosinophils % 4.3 % (0.0-5.0) 11/07/18 19:00 Basophils % 0.9 % (0.0-2.0) 11/07/18 19:00 Sodium 138 mEq/L (136-145) 11/08/18 04:05 Potassium 3.9 mEq/L (3.5-5.1) 11/08/18 04:05 Chloride 104 mEq/L (98-107) 11/08/18 04:05 Carbon Dioxide 24.5 mEq/L (21.0-31.0) 11/08/18 04:05 Anion Gap 13.4 (7.0-16.0) 11/08/18 04:05 BUN 17 mg/dL (7-25) 11/08/18 04:05 Creatinine 0.8 mg/dL (0.6-1.2) 11/08/18 04:05 Est GFR ( Amer) TNP 11/08/18 04:05 Est GFR (Non-Af Amer) TNP 11/08/18 04:05 BUN/Creatinine Ratio 21.3 11/08/18 04:05 Glucose 188 mg/dL (70-105) H 11/08/18 04:05 Calcium 9.1 mg/dL (8.6-10.3) 11/08/18 04:05 Total Bilirubin 0.4 mg/dL (0.3-1.0) 11/07/18 19:00 AST 18 U/L (13-39) 11/07/18 19:00 ALT 20 U/L (7-52) 11/07/18 19:00 Alkaline Phosphatase 81 U/L (34-104) 11/07/18 19:00 B-Natriuretic Peptide 45.7 pg/mL (5.0-100.0) 11/10/18 04:55 Total Protein 7.1 gm/dL (6.0-8.3) 11/07/18 19:00 Albumin 4.1 gm/dL (3.7-5.3) 11/07/18 19:00 Globulin 3.0 gm/dL 11/07/18 19:00 Albumin/Globulin Ratio 1.4 (1.0-1.8) 11/07/18 19:00 Urine Source CLEAN C 11/07/18 19:35 Urine Color YELLOW 11/07/18 19:35 Urine Clarity HAZY (CLEAR) 11/07/18 19:35 Urine pH 6.0 (4.6 - 8.0) 11/07/18 19:35 Ur Specific [place] <= 1.005 (1.005-1.030) 11/07/18 19:35 Urine Protein NEGATIVE mg/dL (NEGATIVE) 11/07/18 19:35 Urine Glucose (UA) NEGATIVE mg/dL (NEGATIVE) 11/07/18 19:35 Urine Ketones NEGATIVE mg/dL (NEGATIVE) 11/07/18 19:35 Urine Blood LARGE (NEGATIVE) H 11/07/18 19:35 Urine Nitrate NEGATIVE (NEGATIVE) 11/07/18 19:35 Urine Bilirubin NEGATIVE (NEGATIVE) 11/07/18 19:35 Urine Urobilinogen 0.2 E.U./dL (0.2 - 1.0) 11/07/18 19:35 Ur Leukocyte Esterase MODERATE (NEGATIVE) H 11/07/18 19:35 Urine RBC 10-25 /hpf (0-5) H 11/07/18 19:35 Urine WBC 6-10 /hpf (0-5) H 11/07/18 19:35 Ur Epithelial Cells FEW /lpf (FEW) 11/07/18 19:35 Urine Bacteria FEW /hpf (NONE SEEN) 11/07/18 19:35 - Physical Exam Vitals and I&O: Vital Signs Temp 97.1 F 11/11/18 11:53 Pulse 78 11/11/18 11:53 Resp 18 11/11/18 11:53 BP 114/55 11/11/18 11:53 Pulse Ox 97 11/11/18 11:53 Intake & Output 11/10/18 11/11/18 11/11/18 18:59 06:59 18:59 Intake Total 1790 990.833 Balance 1790 990.833 Weight (lbs) 85.275 kg 85.275 kg Intake: Intake, IV Amount 1050 990.833 D5-0.45NS 1,000 ml @ 50 1000 940.833 mls/hr IV .Q20H [facility] Rx#: [id number] Piperacillin Sodium/ 50 50 Tazobact 3.375 gm In Sodium Chloride 0.9% 50 ml @ 100 mls/hr IV Q8HR [facility] Rx#:[id number] Oral 740 Other: # Voids 3 # Bowel Movements 0 Stool Characteristics Soft Soft Soft Brown Brown Brown Weight Source Bedscale Bedscale Active Medications: Current Medications Acetaminophen (Tylenol) 650 mg PO Q6H PRN PRN Reason: Pain (Mild) Stop: 01/07/19 10:01 Last Admin: 11/10/18 13:11 Dose: 650 mg Albuterol/Ipratropium (Duoneb Neb) 3 ml HHN Q6HRT [facility] Stop: 01/09/19 00:59 Last Admin: 11/11/18 07:22 Dose: 3 ml Aspirin (Ecotrin) 81 mg PO DAILY [facility] Stop: 01/08/19 08:59 Last Admin: 11/11/18 09:11 Dose: 81 mg Atorvastatin Calcium (Lipitor) 10 mg PO HS [facility]; Protocol Stop: 01/07/19 20:59 Last Admin: 11/10/18 20:40 Dose: 10 mg Budesonide (Pulmicort) 0.5 mg HHN BIDRT [facility] Stop: 01/09/19 06:59 Last Admin: 11/11/18 07:22 Dose: 0.5 mg Carvedilol (Coreg) 3.125 mg PO DAILY [facility] Stop: 01/08/19 08:59 Last Admin: 11/11/18 09:13 Dose: 3.125 mg Ciprofloxacin (Cipro) 250 mg PO BID [facility] Stop: 01/10/19 08:59 Last Admin: 11/11/18 09:10 Dose: 250 mg Docusate Sodium (Colace) 250 mg PO DAILY [facility] Stop: 01/08/19 08:59 Last Admin: 11/11/18 09:13 Dose: 250 mg Dextrose/Sodium Chloride (D5-0.45ns) 1,000 mls @ 50 mls/hr IV .Q20H [facility] Stop: 01/06/19 20:29 Last Admin: 11/11/18 04:57 Dose: 50 mls/hr Risperidone (Risperdal) 0.25 mg PO BID [facility]; Protocol Stop: 01/09/19 08:59 Last Admin: 11/11/18 09:12 Dose: 0.25 mg General: Alert, No acute distress HEENT: Mucous membr. moist/pink Neck: Supple, JVD, +2 carotid pulse wo bruit (flat) Cardiovascular: Regular rate, Normal S1, Normal S2, Systolic murmurs Lungs: Other (wheezing and rhonchi) Abdomen: Bowel sounds, Soft, Other (no organomegaly) Extremities: Other (febrile for 4 pulses) Neurological: Cranial nerves 3-12 NL, Reflexes 2+ Assessment/Plan - Problem List Patient Problems: All Active Problems COUGH AND CONGESTION (Acute) - Assessment Assessment: Acute exacerbation of COPD Congestive heart failure chronic diastolic dysfunction Stable angina CVA with left affect Seizure disorder Hypothyroid Psychosis Dementia Major depression Urinary tract infection Left pleural effusion - Plan Plan: Continue present management will get echocardiogram to evaluate left ventricular function 9 okay discharge Nutritional Asmnt/Malnutr-PDOC - Dietary Evaluation Malnutrition Findings (Please click <Entered> for more info): Nutritional Asmnt/Malnutrition Start: 11/09/18 15: 49 Text: Status: Complete Freq: Protocol: Document 11/09/18 15:50 [email or web address] (Rec: 11/09/18 16:00 [email or web address]) Nutritional Asmnt/Malnutrition Patient General Information Nutritional Screening Moderate Risk Diagnosis COPD exac, UTI Pertinent Medical Hx/Surgical Hx CAD, CHF, COPD, CVA/TIA, dyslipidmiea, seizure, psychosis, dementia, depression Subjective Information Pt unable to fully express needs in open-ended manner, agreeable to NKFA, tolerating pureed with no swallow difficulty, +appetite however finding foods not palatable, declined oral nutrition supplement, no N/V/D/C, states UBW 120 lb however likely erroneous. RN confirms no pressure injury. Current Diet Order/ Nutrition Support pureed, CCHO 45g cardiac SERGIO Patient / S.O Not Indicated Pertinent Medications Lipitor, Colace, abx Pertinent Labs Glu 188 Nutritional Hx/Data Height 1.65 m Height (Calculated Centimeters) 165.1 Current Weight (lbs) 74.843 kg Weight (Calculated Kilograms) 74.8 Weight (Calculated Grams) 78056.7 [place] Body Weight 125 lb Body Mass Index (BMI) 27.4 Weight Status Overweight GI Symptoms GI Symptoms None Last BM 6/4 Difficult in: Chewing Food Allergies No Skin Integrity/Comment: no pressure injury Current %PO Fair (50-74%) Estimated Nutritional Goals BEE in Kcals: Using Current wt Calories/Kcals/Kg 20-25 Kcals Calculated 7635-6321 Protein: Using Current wt Protein g/k+ Protein Calculated 75+ Fluid: ml 8878-6311 Nutritional Problem 1. Problem Problem inadequate po intake Etiology pt states not finding foods palatable Signs/Symptoms: 50-75% po intake noted Intervention/Recommendation Comments 1. continue current diet at this time 2. consider Glucerna 1 carton daily if pt agreeable 3. Monitor PO intake, wt, labs and skin integrity Expected Outcomes/Goals Expected Outcomes/Goals 1. PO intake to meet at least 75% of nutritional needs. 2. Wt stability, skin to remain intact, labs to approach WNL. Pricilla Bynum RD
--- NOTE | 2018-11-11 13:21 | Cardiology ---
11/10/2018 ECHOCARDIOGRAM REPORT PATIENT OF: Dr. Ram. M-MODE ECHOCARDIOGRAM: Mitral valve, anterior leaflet of mitral valve shows normal excursion, EF velocity. Posterior leaflet of the mitral valve shows decreased excursion. Left ventricular posterior wall shows increased thickness, decreased excursion. Interventricular septum shows increased thickness, decreased excursion, ejection fraction 45%. Left atrium normal. Aortic root shows normal dimension, normal excursion of aortic leaflets. CONCLUSION: Hypertrophy of the left ventricle, ejection fraction 45%. 2D ECHO: Long axis view shows enlarged left ventricular cavity with decreased ejection fraction. There is hypertrophy of the left ventricle, ejection fraction 45%. Left atrium normal. Aortic root shows normal dimension, normal excursion of aortic leaflets. Short axis view of mitral valve normal. Short axis view of aortic valve normal. Apical four chamber view shows enlarged left ventricular cavity with decreased ejection fraction. Left atrium normal. Right ventricular cavity, right atrium normal, no pericardial effusion. CONCLUSION: Ejection fraction 45%, hypertrophy of the left ventricle. Doppler study shows mild mitral regurgitation, mild tricuspid regurgitation. 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 [facility]# [id number]
--- NOTE | 2018-11-11 16:03 | Progress Notes ---
DATE: SUBJECTIVE: Chart was reviewed and the patient interviewed and discussed the patient's condition with the staff and reviewed records and labs. The patient is calm and is cooperative. She is also interacting, but still in a depressed mood. The patient also still poverty of speech and stating isolation. Otherwise, no side effects of Seroquel and the patient seems to be calmer and more cooperative since started on Seroquel according to staff report. ASSESSMENT: The patient is cooperative and is less agitated. TREATMENT PLAN: Continue to monitor her behavior and her condition and continue adjusting psychotropic medication and followup. JOB# [id number]
--- NOTE | 2018-11-17 22:10 | Discharge Summary ---
DATE OF DISCHARGE: 11/11/2018 This patient was admitted on 11/07/2018 and discharged on 11/11/2018. This patient was admitted because of cough and wheezing and the patient is known to have history of CHF, CAD, history of TIA in the past, seizure disorder and psychosis. The patient was treated for CHF and asthma and I had Dr. Jose J Pozo, a Cardiology to see the patient as well as ____ and ID doctor. The patient improved. The patient was in stable condition on 11/11/2018. The patient was discharged to [facility]. ____ where I will be following the patient. The patient was continued with antibiotics. MEDICATIONS: See the reconciliation sheet. ACTIVITY: As tolerated. DIET: A 2 g sodium diet. JOB# [id number]
== END 2018-11-11 14:45 | DRG 177 ==
LOC: ER 18:30 → TELE 20:40
PROVIDERS: ADMIT Internal Medicine; ATTEND Internal Medicine
DX: J69.0 Pneumonitis due to inhalation of food and vomit (principal); J96.90 Respiratory failure, unspecified, unspecified whether with hypoxia or hypercapnia; J44.1 Chronic obstructive pulmonary disease with (acute) exacerbation; N39.0 Urinary tract infection, site not specified; J44.0 Chronic obstructive pulmonary disease with (acute) lower respiratory infection; I50.32 Chronic diastolic (congestive) heart failure; F03.91 Unspecified dementia, unspecified severity, with behavioral disturbance; E78.5 Hyperlipidemia, unspecified; F32.9 Major depressive disorder, single episode, unspecified; G40.909 Epilepsy, unspecified, not intractable, without status epilepticus; I69.30 Unspecified sequelae of cerebral infarction; I25.119 Atherosclerotic heart disease of native coronary artery with unspecified angina pectoris; E03.9 Hypothyroidism, unspecified; F29 Unspecified psychosis not due to a substance or known physiological condition; R13.10 Dysphagia, unspecified
CPT/HCPCS: 36415-UA; 71045-TC; 80048-TC; 80053-TC; 81001-TC; 83036-90; 83880-TC; 85007-TC; 85025-TC; 87086-90; 93005; 94640; 94760; 96375; J1100; J2543; J2930; Z7610